=== PATIENT | male | born 1960 | race African-American/Black ===

== ENCOUNTER 2018-02-25 14:56 | Inpatient (IN) | payer OTHER, BC ==
--- NOTE | 2018-02-25 15:06 | PDOC ---
Rapid Medical Evaluation Time Seen by Provider: 02/25/18 15:01 Medical Evaluation: Allergies Allergy/AdvReac Type Severity Reaction Status Date / Time HAYFEVER Allergy Uncoded 06/15/16 09:57 02/25/18 15:01 I have performed a brief in-person evaluation of the patient. The patient presents with a chief complaints of constipation since Wednesday, took miralax, fleet enema and citroma with no results reports pain in abdomen and only passing liquid. Reports generalize abdominal pain. Sent to rule out bowel obstruction, has xray disc on person Pertinent physical exam findings: NAD + bowel sounds in left lower quadrant, bowels hypoactive obese abdomen with discomfort with palpation in all quadrant I have ordered the following: abd xray, labs The patient will proceed to the ED for further evaluation.
--- NOTE | 2018-02-25 16:26 | PDOC ---
History of Present Illness - General History Source: Patient Exam Limitations: No Limitations - History of Present Illness Initial Comments: 02/25/18 17:10 The patient is a 58 year old male, with a significant past medical history of diabetes and hypertension, who presents to the emergency department with constipation for approximately Constipation for approximately 6 days, with associated abdominal pain. The patient describes his abdominal pain is diffuse, crampy, sharp, and radiates into his back. He rates his pain an 11/10. The patient reports his last normal bowel movement was about one week ago. The patient reports visiting his PCP, Dr. Schultz, 5 days ago, who started the patient on Miralax and over the counter enemas. The patient reports multiple episodes of soft stools s/p laxatives, however, he states his abdominal pain has not resolved. He reports associated chills and diaphoresis, but denies any fever, cough, headache, or dizziness. He denies any nausea, vomiting, diarrhea, melena, or hematochezia. He denies any chest pain, shortness of breath, or palpitations. He denies any dysuria, hematuria, frequency, or urgency. He denies any recent travel or sick contacts. Patient reports he had an X-ray done 2 days ago, which showed constipation. He denies any history of constipation prior to this episode or any family history of GI issues. Allergies: NKDA Past Surgical History: Laminectomy, hernia repair Social History: Former ETOH use. No tobacco use. No recreational drug use. PCP: Dr. Schultz <Binta Fortune - Last Filed: 02/25/18 17:10> - General History Source: Patient Exam Limitations: No Limitations <Emily Palmer - Last Filed: 02/26/18 21:12> - General Chief Complaint: Constipation Stated Complaint: CONSTIPATION Time Seen by Provider: 02/25/18 15:01 Past History <Binta Fortune - Last Filed: 02/25/18 17:10> - Past Medical History Anemia: Yes (IRON DEFICIENCY ANEMIA) Asthma: No Cancer: No Cardiac Disorders: No CVA: No COPD: No CHF: No Dementia: No Diabetes: Yes GI Disorders: Yes (GERD) Disorders: No HTN: Yes Hypercholesterolemia: Yes Liver Disease: No Seizures: No Thyroid Disease: No Other medical history: gout - Surgical History Abdominal Surgery: Yes (HERNIA REPAIR) Appendectomy: No Cardiac Surgery: No Cholecystectomy: No Lung Surgery: No Neurologic Surgery: No Orthopedic Surgery: Yes (BACK/NECK LAMINECTOMY SCREW/RODS, SCREWS IN RIGHT TOE) - Immunization History Immunization Up to Date: Yes - Suicide/Smoking/Psychosocial Hx Smoking Status: No Smoking History: Never smoked Number of Cigarettes Smoked Daily: 0 Hx Alcohol Use: No Drug/Substance Use Hx: No Substance Use Type: Alcohol Hx Substance Use Treatment: No <Emily Palmer - Last Filed: 02/26/18 21:12> - Past Medical History Allergies/Adverse Reactions: Allergies Allergy/AdvReac Type Severity Reaction Status Date / Time No Known Drug Allergies Allergy Verified 02/25/18 16:33 HAYFEVER Allergy Uncoded 02/25/18 15:03 Home Medications: Ambulatory Orders Amlodipine Besylate 5 mg PO DAILY 05/07/16 Colchicine 0.6 mg PO PRN PRN 05/07/16 Ergocalciferol (Vitamin D2) [Vitamin D2] 50,000 unit PO WEEKLY 05/07/16 Indomethacin 50 mg PO PRN #0 06/15/16 Review of Systems - Review of Systems Able to Perform ROS?: Yes Comments:: 02/25/18 17:10 GENERAL/CONSTITUTIONAL: +Chills. No: fever, weakness, loss of appetite. HEAD, EYES, EARS, NOSE AND THROAT: No: change in vision, ear pain, discharge, sore throat, throat swelling. CARDIOVASCULAR: +Diaphoresis. No: chest pain, lightheadedness, palpitations, syncope RESPIRATORY: No: cough, shortness of breath, wheezing, hemoptysis, stridor. GASTROINTESTINAL: +Diffuse abdominal pain, constipation. No: nausea, vomiting, diarrhea, rectal bleeding. GENITOURINARY: No: dysuria, hematuria, frequency, urgency, flank pain. MUSCULOSKELETAL: No: back pain, neck pain, joint pain, muscle swelling or pain SKIN AND BREASTS: No: lesions, pallor, rash or easy bruising. NEUROLOGIC: No: headache, vertigo, paresthesias, weakness ENDOCRINE: No: unexplained weight gain or loss HEMATOLOGIC/LYMPHATIC: No: anemia, easy bleeding, swelling nodes <Fortune,Giomilsy - Last Filed: 02/25/18 17:10> *Physical Exam - Vital Signs Last Vital Signs Temp Pulse Resp BP Pulse Ox 98.2 F 105 H 20 138/90 98 02/25/18 15:03 02/25/18 15:03 02/25/18 15:03 02/25/18 15:03 02/25/18 15:03 - Physical Exam Comments: 02/25/18 17:11 GENERAL: Moderate distress. Morbidly obese. HEAD: Normal with no signs of trauma. EYES: PERRLA, EOMI, sclera anicteric, conjunctiva clear. ENT: Ears normal, nares patent, oropharynx clear without exudates. Moist mucous membranes. NECK: Normal range of motion, supple without lymphadenopathy, JVD, or masses. LUNGS: Breath sounds equal, clear to auscultation bilaterally. No wheezes, and no crackles. HEART: Regular rate and rhythm, normal S1 and S2 without murmur, rub or gallop. ABDOMEN: Diffuse tenderness to palpation, with rebound, but no guarding. Soft obese, hypoactive bowel sounds. EXTREMITIES: Normal range of motion, no edema. No clubbing or cyanosis. No erythema, or tenderness. NEUROLOGICAL: Cranial nerves II through XII grossly intact. Normal speech. No focal neurological deficits. MUSCULOSKELETAL: Back non-tender to palpation, no CVA tenderness SKIN: Warm, Dry, normal turgor, no rashes or lesions noted. <Binta Fortune - Last Filed: 02/25/18 17:10> - Vital Signs Last Vital Signs Temp Pulse Resp BP Pulse Ox 98.2 F 105 H 20 138/90 98 02/25/18 15:03 02/25/18 15:03 02/25/18 15:03 02/25/18 15:03 02/25/18 15:03 <Emily Palmer - Last Filed: 02/26/18 21:12> ED Treatment Course - LABORATORY CBC & Chemistry Diagram: 02/26/18 06:00 02/26/18 06:00 <Emily Palmer - Last Filed: 02/26/18 21:12> Medical Decision Making - Medical Decision Making 02/25/18 17:52 Mr Mercado is a 58 yo M who presents to the ER with a complaint of diffuse abdominal pain and constipation Pt states his symptoms began 6 days ago He was seen by his PMD, given Miralax and told to use OTC enema with small stools resulting Pt now has severe and persistent diffuse abdominal pain No fevers or chills Pt has limited his po intake - has not had a full meal since his symptoms began 6 days ago He has been able to drink fluids and eat small amounts of fruit Pain is now 11 DD: SBO, Diverticulitis, intraabdominal abscess, colitis. constipation Will do: Labs CT Pain medications IVF 02/25/18 17:57 Laboratory Tests 02/25/18 17:20 WBC 15.2 H D Hgb 12.1 Hct 37.0 Plt Count 160 D 02/25/18 18:20 Laboratory Tests 02/25/18 02/25/18 02/25/18 17:20 17:20 17:20 WBC 15.2 H D Hgb 12.1 Hct 37.0 Plt Count 160 D PT with INR 14.20 H INR 1.26 H PTT (Actin FS) 30.9 Sodium 138 Potassium 3.5 Chloride 103 Carbon Dioxide 28 BUN 15 D Creatinine 1.8 H D Random Glucose 102 Creatinine elevated Will do CT without IV contrast Signed out to Dr Dimas Clinical Impression: abdominal pain, initial presentation <Emily Palmer - Last Filed: 02/26/18 21:12> *DC/Admit/Observation/Transfer - Attestations Scribe Attestion: 02/25/18 17:11 Documentation prepared by Binta Fortune, acting as medical office administrator for Emily Palmer MD. <Binta Fortune - Last Filed: 02/25/18 17:10> <Emily Palmer - Last Filed: 02/26/18 21:12> Diagnosis at time of Disposition: Pancreatitis - Discharge Dispostion Condition at time of disposition: Guarded
[2018-02-25] MEDS ORDERED: morphine SULFATE 4 MG/ML VIAL IVPUSH ONE (16:28)
[2018-02-25] MEDS ORDERED: SODIUM CHLORIDE 1,000 ML IV STA (16:28)
[2018-02-25] MEDS ORDERED: MORPHINE SULFATE 10 MG/1 ML *VIAL ONE (17:05)
[2018-02-25 17:37] LABS: BASO % 0.4 % (0-2.0); EOS % 1.9 % (0-4.5); HEMOGLOBIN 12.1 GM/dL (11.7-16.9); LYMPH % 9.7 % (8-40); MCH 24.7 pg (25.7-33.7); MCHC 32.8 g/dl (32.0-35.9); MEAN CELL VOLUME 75.3 fl (80-96); MEAN PLT VOLUME 9.1 fl (7.5-11.1); MONO % 12.7 % (3.8-10.2); NEUT % 75.3 % (42.8-82.8); PLATELET COUNT 160 K/MM3 (134-434); RBC 4.91 M/mm3 (4.00-5.60); RDW 15.6 % (11.9-15.9); WHITE BLOOD COUNT 15.2 K/mm3 (4.0-10.0)
[2018-02-25 17:42] LABS: INR 1.26 (0.82-1.09); PROTHROMBIN TIME (PATIENT) 14.2 SEC (9.7-13.0)
[2018-02-25 17:44] LABS: ACTIVATED PTT 30.9 SECONDS (26.9-34.4)
[2018-02-25 17:52] LABS: ALBUMIN 3.1 g/dl (3.4-5.0); ANION GAP 7 (8-16); BILIRUBIN,TOTAL 2.9 mg/dL (0.2-1.0); BLOOD UREA NITROGEN 15 mg/dL (7-18); CALCIUM 7.8 mg/dL (8.5-10.1); CHLORIDE 103 mmol/L (98-107); CO2 28 mmol/L (21-32); CREATININE 1.8 mg/dL (0.7-1.3); GLUCOSE,RANDOM 102 mg/dL (74-106); POTASSIUM 3.5 mmol/L (3.5-5.1); SGOT/AST 24 U/L (15-37); SGPT/ALT 15 U/L (12-78); SODIUM 138 mmol/L (136-145); TOT PROT 7.2 g/dl (6.4-8.2)
[2018-02-25 17:53] LABS: ALK PHOS 108 U/L (45-117)
[2018-02-25 17:55] LABS: LIPASE 475 U/L (73-393)
--- NOTE | 2018-02-25 19:44 | PDOC ---
*Physical Exam - Vital Signs Last Vital Signs Temp Pulse Resp BP Pulse Ox 98.2 F 105 H 20 138/90 98 02/25/18 15:03 02/25/18 15:03 02/25/18 15:03 02/25/18 15:03 02/25/18 15:03 ED Treatment Course - LABORATORY CBC & Chemistry Diagram: 02/25/18 17:20 02/25/18 17:20 - ADDITIONAL ORDERS Additional order review: Laboratory Results 02/25/18 02/25/18 02/25/18 17:20 17:20 17:20 PT with INR 14.20 H INR 1.26 H PTT (Actin FS) 30.9 Sodium 138 Potassium 3.5 Chloride 103 Carbon Dioxide 28 Anion Gap 7 L BUN 15 D Creatinine 1.8 H D Creat Clearance w eGFR 38.81 Random Glucose 102 Lactic Acid 1.7 Calcium 7.8 L Total Bilirubin 2.9 H D AST 24 D ALT 15 D Alkaline Phosphatase 108 D Total Protein 7.2 Albumin 3.1 L Lipase 475 H 02/25/18 17:20 RBC 4.91 MCV 75.3 L MCHC 32.8 RDW 15.6 MPV 9.1 Neutrophils % 75.3 Lymphocytes % 9.7 D Monocytes % 12.7 H Eosinophils % 1.9 Basophils % 0.4 - Medications Given in the ED: ED Medications Discontinued Medications Generic Name Dose Route Start Last Admin Trade Name Freq PRN Reason Stop Dose Admin Sodium Chloride 1,000 mls @ 1,000 mls/hr 02/25/18 16:28 02/25/18 17:24 Normal Saline - IV 02/25/18 17:27 1,000 mls/hr ASDIR STA Administration Morphine Sulfate 6 mg 02/25/18 16:28 02/25/18 17:24 Morphine Sulfate IVPUSH 02/25/18 16:29 6 mg ONCE ONE Administration Medical Decision Making - Medical Decision Making 02/25/18 19:44 I received signout on patient. He has an elevated lipase and he has abd pain. Likely pancreatitis; Ct scan of abd/pelvis pending. 02/25/18 23:39 CT demonstrates acute pancreatitis. Pt will be admitted and kept NPO. GI consult in the AM Sono of abdomen demonstrates no GB pathology. *DC/Admit/Observation/Transfer Diagnosis at time of Disposition: Pancreatitis - Discharge Dispostion Condition at time of disposition: Guarded Admit: Yes - Referrals Referrals: Teri Schultz MD [Primary Care Provider] - - Patient Instructions - Post Discharge Activity
[2018-02-25] MEDS ORDERED: POLYETHYLENE GLYCOL 3350 119 GM BTL PO ONE (20:16)
[2018-02-25] MEDS ORDERED: LACTULOSE 20 GM/30 ML UDC (FOR ORAL USE ONLY) PO ONE (20:17)
[2018-02-25] MEDS ORDERED: LACTULOSE 20 GM/30 ML UDC (FOR ORAL USE ONLY) ONE (20:47)
[2018-02-26] MEDS ORDERED: POLYETHYLENE GLYCOL 3350 119 GM BTL PO ONE (00:30)
[2018-02-26] MEDS ORDERED: ACETAMINOPHEN 1000 MG/100 ML VIAL (NON FORMULARY) IVPB ONE (00:31)
[2018-02-26] MEDS ORDERED: METOCLOPRAMIDE HCL INJECTION 10 MG/2 ML VIAL IVPUSH PRN (00:53)
--- NOTE | 2018-02-26 01:01 | HP ---
CHIEF COMPLAINT: abdominal pain PCP: Antoine HISTORY OF PRESENT ILLNESS: This is a 58 year old male with a past medical history of DM, HTN, iron deficiency anemia, GERD, HLD, gout who presented to the ED with abdominal pain x 6 days. Pt reports that he was seen by his PCP and started on miralax and enemas which he feels he did not self administer properly. He had an xray done a few days ago. He reports that he has had some liquid BMs since starting the miralax but feels there is much more in him and "nothing is moving". He denies any nausea or vomiting but states that the pain is in the upper part of his abdomen and his back. ER course was notable for: (1) lipase 475 with evidence of acute pancreatitis on CT scan (2)WBC 15.2, Lactic Acid WNL Recent Travel: pt denies PAST MEDICAL HISTORY: DM, HTN, iron deficiency anemia, GERD, HLD, gout PAST SURGICAL HISTORY: laminectomy L4-L5 R great toe bunionectomy Social History: Smoking: pt denies Alcohol: quit drinking 10 days ago, prior 1 pint of cognac daily Drugs: pt denies Family History: mother , heart disease age 79 sister , heart disease father age 90, s/p fall brother , HIV Allergies No Known Drug Allergies Allergy (Verified 02/25/18 16:33) HAYFEVER Allergy (Uncoded 02/25/18 15:03) HOME MEDICATIONS: pt states he is unsure of his home medications. States that he utilizes [facility] on [address], Called [facility], pt has not filled any prescriptions since 06/2017 REVIEW OF SYSTEMS CONSTITUTIONAL: Present: loss of appetite Absent: fever, chills, diaphoresis, generalized weakness, malaise, weight change HEENT: Absent: rhinorrhea, nasal congestion, throat pain, throat swelling, difficulty swallowing, mouth swelling, ear pain, eye pain, visual changes CARDIOVASCULAR: Absent: chest pain, syncope, palpitations, irregular heart rate, lightheadedness , peripheral edema RESPIRATORY: Absent: cough, shortness of breath, dyspnea with exertion, orthopnea, wheezing, stridor, hemoptysis GASTROINTESTINAL: Present: abdominal pain, constipation Absent: abdominal distension, nausea, vomiting, diarrhea, melena, hematochezia GENITOURINARY: Absent: dysuria, frequency, urgency, hesitancy, hematuria, flank pain, genital pain MUSCULOSKELETAL: Present: back pain Absent: myalgia, arthralgia, joint swelling, neck pain SKIN: Absent: rash, itching, pallor HEMATOLOGIC/IMMUNOLOGIC: Absent: easy bleeding, easy bruising, lymphadenopathy, frequent infections ENDOCRINE: Absent: unexplained weight gain, unexplained weight loss, heat intolerance, cold intolerance NEUROLOGIC: Absent: headache, focal weakness or paresthesias, dizziness, unsteady gait, seizure, mental status changes, bladder or bowel incontinence PSYCHIATRIC: Absent: anxiety, depression, suicidal or homicidal ideation, hallucinations. PHYSICAL EXAMINATION Vital Signs - 24 hr 3 02/25/18 15:03 Temperature 98.2 F Pulse Rate 105 H Respiratory 20 Rate Blood Pressure 138/90 O2 Sat by Pulse 98 Oximetry (%) GENERAL: Awake, alert, and fully oriented, in no acute distress. HEAD: Normal with no signs of trauma. EYES: Pupils equal, round and reactive to light, extraocular movements intact, sclera anicteric, conjunctiva clear. No lid lag. EARS, NOSE, THROAT: Ears normal, nares patent, oropharynx clear without exudates. Moist mucous membranes. NECK: Normal range of motion, supple without lymphadenopathy, JVD, or masses. LUNGS: Breath sounds equal, clear to auscultation bilaterally. No wheezes, and no crackles. No accessory muscle use. HEART: Regular rate and rhythm, normal S1 and S2 without murmur, rub or gallop. ABDOMEN: Soft, tender upper quadrants, obese, normoactive bowel sounds, no guarding, no rebound, no masses. MUSCULOSKELETAL: Normal range of motion at all joints. No bony deformities or tenderness. No CVA tenderness. UPPER EXTREMITIES: 2+ pulses, warm, well-perfused. No cyanosis. No clubbing. No peripheral edema. LOWER EXTREMITIES: 2+ pulses, warm, well-perfused. No calf tenderness. No peripheral edema. NEUROLOGICAL: Cranial nerves II-XII intact. Normal speech. Normal gait. PSYCHIATRIC: Cooperative. Good eye contact. Appropriate mood and affect. SKIN: Warm, dry, normal turgor, no rashes or lesions noted, normal capillary refill. Laboratory Results - last 24 hr 3 02/25/18 02/25/18 02/25/18 17:20 17:20 17:20 WBC 15.2 H D RBC 4.91 Hgb 12.1 Hct 37.0 MCV 75.3 L MCH 24.7 L MCHC 32.8 RDW 15.6 Plt Count 160 D MPV 9.1 Neutrophils % 75.3 Lymphocytes % 9.7 D Monocytes % 12.7 H Eosinophils % 1.9 Basophils % 0.4 PT with INR 14.20 H INR 1.26 H PTT (Actin FS) 30.9 Sodium 138 Potassium 3.5 Chloride 103 Carbon Dioxide 28 Anion Gap 7 L BUN 15 D Creatinine 1.8 H D Creat Clearance w eGFR 38.81 Random Glucose 102 Lactic Acid 1.7 Calcium 7.8 L Total Bilirubin 2.9 H D AST 24 D ALT 15 D Alkaline Phosphatase 108 D Total Protein 7.2 Albumin 3.1 L Lipase [address] abd/pelvis w/o contrast IMPRESSION: soft tissue detail is somewhat limited due to artifact resulting from body habitus. Acute pancreatitis is identified. Note is also made of interval development of chronic calcific pancreatitis in comparison to a previous CT exam of 07/23/2012. Several mildly dilated upper abdominal small bowel loops are noted which could be on the basis of a mild localized ileus and less likely on the basis of a mild/early small bowel obstruction. Correlate with follow-up radiography or CT. Bibasilar discoid atelectasis. Reported By: Grant Longoria MD 02/25/18 7285 ASSESSMENT/PLAN: 58yM with PMH DM, HTN, iron deficiency anemia, GERD, HLD, gout presented to the ED with abdominal pain x 5-6 days. Pancreatitis - NPO except meds - IVF NS @ 75cc/hr - GI consult constipation - excessive stool burden not noted on CT scan, pt reassured that pain is likely due to pancreatitis and has nothing to do with constipation - pt has received miralax in ED, will monitor HTN - pt unsure of home meds, when i called [facility] to verify meds, no medication filled since june - bp low 100s presently, will hold meds for now, BP q4h prior ETOH abuse - stressed importance of abstaining from alcohol given pancreatitis DM - BGM with novolog SS AC/HS anemia - Hgb 12, will monitor H/H DVT PPX - heparin 5000u TID FEN - NS @ 75cc/hr - BMP in am - NPO Dispo: Pt currently requires further management of his emergent condition. Visit type - Emergency Visit Emergency Visit: Yes ED Registration Date: 02/26/18 Care time: The patient presented to the Emergency Department on the above date and was hospitalized for further evaluation of their emergent condition. - New Patient This patient is new to me today: Yes Date on this admission: 02/26/18 - Critical Care Critical Care patient: No Hospitalist Screening - Colonoscopy Questionnaire Colonoscopy Questionnaire: Colonoscopy Questionnaire - Patient: 50 - 75 years old and never had a screening colonoscopy: Unknown History of colon or rectal polyps, or CA: No History of IBD, Crohn's disease or UC: No History of abdominal radiation therapy as a child: No - Relative: 1 with colon or rectal CA, or polyps at age 60 or younger: No Colon or rectal CA diagnosed at age 45 or younger: No Multiple relatives with colon or rectal CA: No - Outcome: Screening Result: Negative Screen
[2018-02-26] MEDS: SODIUM CHLORIDE 1,000 ML IV SCH ×2 (01:07→04:02)
[2018-02-26] MEDS ORDERED: ACETAMINOPHEN INJECTION 100 ML IVPB ONE (01:26)
[2018-02-26 03:39] VITALS: BMI 49.0
[2018-02-26] MEDS: morphine SULFATE 4 MG/ML VIAL IVPUSH PRN ×4 (04:01→20:23)
[2018-02-26] MEDS: HEPARIN NA (PORCINE) 5,000 UNITS/ML 1ML VIAL SQ SCH ×3 (05:58→21:41)
[2018-02-26] MEDS: INSULIN SLIDING SCALE (NOVOLOG) 1 VIAL SQ SCH ×4 (05:59→21:42)
[2018-02-26 07:54] LABS: BASO % 0.2 % (0-2.0); EOS % 2.6 % (0-4.5); HEMATOCRIT 33.9 % (35.4-49); HEMOGLOBIN 11.1 GM/dL (11.7-16.9); LYMPH % 10.2 % (8-40); MCH 24.7 pg (25.7-33.7); MCHC 32.7 g/dl (32.0-35.9); MEAN CELL VOLUME 75.6 fl (80-96); MEAN PLT VOLUME 9.2 fl (7.5-11.1); MONO % 16.1 % (3.8-10.2); NEUT % 70.9 % (42.8-82.8); PLATELET COUNT 168 K/MM3 (134-434); RBC 4.48 M/mm3 (4.00-5.60); RDW 15.4 % (11.9-15.9); WHITE BLOOD COUNT 14.2 K/mm3 (4.0-10.0)
[2018-02-26 08:03] LABS: CHLORIDE 99 mmol/L (98-107); POTASSIUM 3.2 mmol/L (3.5-5.1); SODIUM 136 mmol/L (136-145)
[2018-02-26 08:11] LABS: ANION GAP 11 (8-16); BLOOD UREA NITROGEN 20 mg/dL (7-18); CALCIUM 8.4 mg/dL (8.5-10.1); CO2 26 mmol/L (21-32); CREATININE 1.8 mg/dL (0.7-1.3); GLUCOSE,RANDOM 93 mg/dL (74-106); MAGNESIUM 2.4 mg/dL (1.8-2.4); PHOSPHOROUS 2.9 mg/dL (2.5-4.9)
[2018-02-26 08:14] LABS: LIPASE 492 U/L (73-393)
--- NOTE | 2018-02-26 08:46 | CON.GI ---
Consult Consult Specialty:: GI: Dr. Mak covering for Dr. Brennan who resumes care 02/28 Referred by:: Dr. Teri Schultz Reason for Consultation:: Pancreatitis - History of Present Illness Chief Complaint: abdominal pain History of Present Illness: 58M admitted for evaluation of abdominal pain. He states that he was experiencing mid abdominal and back pain from wednesday along with constipation, saw his PMD Dr. Schultz, was given a referral to [facility] radiology to have an abdominal x-ray performed (patient states that it found stool in colon) and he was then prescribed laxatives. He had liquid bowel movements but the pain persisted. He was sent to the ER yesterday. work-up included blood work revealing a WBC of 15K, elevated creatinine of 1.8, isolated hyperbilirubinemia of 2.9 and lipase of 475. he underwent abdominal imagin including abdominal US that was limited given his body habitus but failed to reveal biliary ductal dilatation or cholelithiasis. He underwent CT scan of the abdomen and pelvis with PO contrast only that revealed calcifications within the pancreas along with peripancreatic inflammatory changes consistent with acute pancreatitis. He denies similar episodes in the past and was drinking 1 pint of cognac every other day. he quit 10 days ago. He denies recent changes in his medication regimen. He takes colchicine and indocin for management of gout as needed and last took 2 weeks ago. He denies recent OTC medication use. He had a colonoscopy in [address] Hugo that revealed an ascending colon lipoma. there is no family history of colorectal cancer or other GI malignancy. - History Source History Provided By: Patient, Medical Record - Past Medical History Cardio/Vascular: Yes: HTN, Hyperlipdemia Rheumatology: Yes: Gout Endocrine: Yes: Diabetes Mellitus (DM II), Other (Morbid obesity) - Past Surgical History Past Surgical History: Yes: Laminectomy (lumbar spine) Additional Surgical History: surgery on right foot - Alcohol/Substance Use Hx Alcohol Use: Yes (1 pint cognac every other day for multiple years) History of Substance Use: reports: None - Smoking History Smoking history: Never smoked Aproximately how many cigarettes per day: 0 - Social History Usual Living Arrangement: With Significant Other ADL: Independent Place of : [facility] History of Recent Travel: No Home Medications - Allergies Allergies/Adverse Reactions: Allergies Allergy/AdvReac Type Severity Reaction Status Date / Time No Known Drug Allergies Allergy Verified 02/25/18 16:33 HAYFEVER Allergy Uncoded 02/25/18 15:03 - Home Medications Home Medications: Ambulatory Orders Amlodipine Besylate 5 mg PO DAILY 05/07/16 Colchicine 0.6 mg PO PRN PRN 05/07/16 Ergocalciferol (Vitamin D2) [Vitamin D2] 50,000 unit PO WEEKLY 05/07/16 Indomethacin 50 mg PO PRN #0 06/15/16 Family Disease History - Family Disease History Family Disease History: Other: Father (: 90: s/p Fall), Mother ( 76: CAD ), Brother (: HIV), Sister (: CAD), Son (3, healthy), Daughter (1, healthy) Other Family History: No family history of colorectal cancer / pancreatic cancer Review of Systems - Review of Systems Constitutional: denies: Unintentional Wgt. Loss Gastrointestinal: reports: Constipation, Diarrhea, Indigestion, Nausea. denies : Melena, Rectal Bleeding, Vomiting, Vomiting Blood Physical Exam-GI Vital Signs: Vital Signs Temperature 98 F 02/26/18 06:03 Pulse Rate 85 02/26/18 06:03 Respiratory Rate 20 02/26/18 06:03 Blood Pressure 117/67 02/26/18 06:03 O2 Sat by Pulse Oximetry (%) 95 02/26/18 03:50 Constitutional: Yes: Calm Eyes: No: Sclera Icterus Cardiovascular: Yes: Regular Rate and Rhythm Respiratory: Yes: CTA Bilaterally Gastrointestinal Inspection: Yes: Other (Evaluation limited due to body habitus) . No: Scars ...Auscultate: Yes: Normoactive Bowel Sounds ...Palpate: Yes: Tenderness (TTP mid abdomen, no guarding or rebound). No: Hepatomegaly (limited due to body habitus) ...Percussion: No: Tympanitic Edema: Yes (Trace LE edema) Neurological: Yes: Alert, Oriented Labs: CBC, BMP 02/26/18 06:00 02/26/18 06:00 INR, PTT INR 1.26 (0.82-1.09) H 02/25/18 17:20 Hepatic Panel Total Bilirubin 2.9 mg/dL (0.2-1.0) H D 02/25/18 17:20 AST 24 U/L (15-37) D 02/25/18 17:20 ALT 15 U/L (12-78) D 02/25/18 17:20 Alkaline Phosphatase 108 U/L (45-117) D 02/25/18 17:20 Albumin 3.1 g/dl (3.4-5.0) L 02/25/18 17:20 Imaging - Results Cat Scan: Report Reviewed, Image Reviewed Ultrasound: Report Reviewed Problem List - Problems (1) Pancreatitis Assessment/Plan: Description of pain, location of tenderness on exam and CT scan findings c/w pancreatitis. Calcifications in pancreas likely secondary to heavy alcohol consumption. This may have precipitated the pancreatitis as well: Pain improved from onset in Wednesday Advise: IV hydration Lactated Ringers at 100cc/hr Advance to clear liquids Isolated hyperbilirubinemia. ? if secondary to inflammatory changes at head of pancreas. No previous elevation to suggest gilbert's. If continues to rise, evaluation for further imaging of biliary tract will need to be considered. Likely will not fit in MRI machine for MRCP so transfer to a facility that could perform EUS would be an option AM labs including fasting triglycerides evaluation of elevated Cr. per PMD Advised complelete alcohol cessation Upon discharge can follow-up with Dr. Brennan as an outpatient Code(s): K85.90 - ACUTE PANCREATITIS WITHOUT NECROSIS OR INFECTION, UNSP Qualifiers: Chronicity: acute Pancreatitis type: alcohol induced Acute pancreatitis complication: no infection or necrosis Qualified Code(s): K85.20 - Alcohol induced acute pancreatitis without necrosis or infection
[2018-02-26] MEDS ORDERED: POLYETHYLENE GLYCOL 3350 119 GM BTL PO PRN (09:11)
[2018-02-26] MEDS: LACTATED RINGERS SOLUTION 1,000 ML/1,000 ML INFUS.BAG IV SCH ×2 (10:00→20:21)
--- NOTE | 2018-02-26 12:09 | PN ---
Progress Note, Physician - Current Medication List Current Medications: Active Medications Heparin Sodium (Porcine) (Heparin -) 5,000 unit SQ TID [facility] Last Admin: 02/26/18 05:58 Dose: 5,000 unit Lactated Ringer's (Lactated Ringers Solution) 1,000 ml in 1,000 mls @ 100 mls/ hr IV ASDIR ANNA Last Admin: 02/26/18 10:00 Dose: 100 mls/hr Insulin Aspart (Novolog Vial Sliding Scale -) 1 vial SQ HS ANNA PRN Reason: Protocol Insulin Aspart (Novolog Vial Sliding Scale -) 1 vial SQ TIDAC ANNA PRN Reason: Protocol Last Admin: 02/26/18 11:42 Dose: Not Given Morphine Sulfate (Morphine Sulfate) 4 mg IVPUSH Q4H PRN PRN Reason: PAIN LEVEL 6-10 Last Admin: 02/26/18 11:41 Dose: 4 mg Polyethylene Glycol (Miralax (For Daily Use) -) 17 gm PO DAILY PRN PRN Reason: CONSTIPATION - Objective Vital Signs: Vital Signs Temperature 98.5 F 02/26/18 10:00 Pulse Rate 85 02/26/18 10:00 Respiratory Rate 20 02/26/18 10:00 Blood Pressure 127/76 02/26/18 10:00 O2 Sat by Pulse Oximetry (%) 95 02/26/18 03:50 Labs: CBC, BMP 02/26/18 06:00 02/26/18 06:00 INR, PTT INR 1.26 (0.82-1.09) H 02/25/18 17:20 Problem List - Problems (1) Pancreatitis Assessment/Plan: Pancreatitis - NPO except meds - IVF NS @ 75cc/hr - GI consult - NS @ 75cc/hr - BMP and Lipase in am - Diet per GI - prior ETOH abuse - stressed importance of abstaining from alcohol given pancreatitis - heparin 5000u TID Code(s): K85.90 - ACUTE PANCREATITIS WITHOUT NECROSIS OR INFECTION, UNSP Qualifiers: Chronicity: acute Pancreatitis type: alcohol induced Acute pancreatitis complication: no infection or necrosis Qualified Code(s): K85.20 - Alcohol induced acute pancreatitis without necrosis or infection (2) HTN (hypertension) Assessment/Plan: - pt unsure of home meds - bp low 100s presently, will hold meds for now, BP q4h Code(s): I10 - ESSENTIAL (PRIMARY) HYPERTENSION (3) Constipation Assessment/Plan: - excessive stool burden not noted on CT scan, pt reassured that pain is likely due to pancreatitis and has nothing to do with constipation - pt has received miralax in ED, will monitor Code(s): K59.00 - CONSTIPATION, UNSPECIFIED (4) Diabetes Assessment/Plan: - BGM with novolog SS AC/HS Code(s): E11.9 - TYPE 2 DIABETES MELLITUS WITHOUT COMPLICATIONS
--- NOTE | 2018-02-26 14:33 | EKG ---
Test Reason : Blood Pressure : / mmHG Vent. Rate : 091 BPM Atrial Rate : 091 BPM P-R Int : 116 ms QRS Dur : 096 ms QT Int : 386 ms P-R-T Axes : 005 001 094 degrees QTc Int : 474 ms NORMAL SINUS RHYTHM NONSPECIFIC ST AND T WAVE ABNORMALITY ABNORMAL ECG NO PREVIOUS ECGS AVAILABLE Confirmed by MD Elan, Silver ([id number]) on 02/26/2018 2:33:16 PM Referred By: Confirmed By:Silver Ansari MD
[2018-02-26 15:53] LABS: CHOLESTEROL 125 mg/dL (50-200); HDL CHOLESTEROL 14 mg/dL (40-60); TRIGLYCERIDES 165 mg/dL (35-160)
[2018-02-26] MEDS ORDERED: chlordiazePOXIDE HCL 25 MG CAPSULE PO PRN (18:42)
[2018-02-26] MEDS ORDERED: POTASSIUM CHLORIDE TABS 20 MEQ TABLET.ER (FP) PO ONE (19:30)
[2018-02-27] MEDS: morphine SULFATE 4 MG/ML VIAL IVPUSH PRN ×5 (00:40→19:56)
[2018-02-27] MEDS: INSULIN SLIDING SCALE (NOVOLOG) 1 VIAL SQ SCH ×4 (06:40→21:07)
[2018-02-27] MEDS: HEPARIN NA (PORCINE) 5,000 UNITS/ML 1ML VIAL SQ SCH ×3 (06:40→21:12)
[2018-02-27 07:36] LABS: BASO % 0.2 % (0-2.0); EOS % 2.3 % (0-4.5); HEMATOCRIT 32.4 % (35.4-49); HEMOGLOBIN 10.5 GM/dL (11.7-16.9); LYMPH % 10.9 % (8-40); MCH 24.6 pg (25.7-33.7); MCHC 32.5 g/dl (32.0-35.9); MEAN CELL VOLUME 75.5 fl (80-96); MONO % 16.5 % (3.8-10.2); NEUT % 70.1 % (42.8-82.8); PLATELET COUNT 178 K/MM3 (134-434); RBC 4.29 M/mm3 (4.00-5.60); RDW 15.5 % (11.9-15.9)
[2018-02-27 07:53] LABS: ALBUMIN 2.6 g/dl (3.4-5.0); ANION GAP 7 (8-16); BLOOD UREA NITROGEN 13 mg/dL (7-18); CALCIUM 7.7 mg/dL (8.5-10.1); CHLORIDE 103 mmol/L (98-107); CO2 26 mmol/L (21-32); GLUCOSE,RANDOM 95 mg/dL (74-106); POTASSIUM 3.5 mmol/L (3.5-5.1); SODIUM 136 mmol/L (136-145)
[2018-02-27 07:57] LABS: ALK PHOS 108 U/L (45-117); BILIRUBIN,DIRECT 2.2 mg/dL (0.0-0.2); BILIRUBIN,TOTAL 2.8 mg/dL (0.2-1.0); CREATININE 1.3 mg/dL (0.7-1.3); SGOT/AST 31 U/L (15-37); SGPT/ALT 20 U/L (12-78); TOT PROT 6.4 g/dl (6.4-8.2)
[2018-02-27 08:03] LABS: ALBUMIN 2.7 g/dl (3.4-5.0); ANION GAP 10 (8-16); BLOOD UREA NITROGEN 15 mg/dL (7-18); CHLORIDE 101 mmol/L (98-107); CO2 26 mmol/L (21-32); GLUCOSE,RANDOM 96 mg/dL (74-106); POTASSIUM 3.5 mmol/L (3.5-5.1); SGOT/AST 30 U/L (15-37); SGPT/ALT 19 U/L (12-78); SODIUM 137 mmol/L (136-145)
[2018-02-27 08:16] LABS: ALK PHOS 105 U/L (45-117); BILIRUBIN,TOTAL 2.9 mg/dL (0.2-1.0); CREATININE 1.2 mg/dL (0.7-1.3); TOT PROT 6.5 g/dl (6.4-8.2)
[2018-02-27] MEDS: LACTATED RINGERS SOLUTION 1,000 ML/1,000 ML INFUS.BAG IV SCH (09:06)
--- NOTE | 2018-02-27 11:02 | PN ---
GI Progress Note Subjective: Dr. Mak covering for Dr. Brennan who resumes care 02/28 Main complaint is pain in left lower back. He told his nurse however this morning that the pain is 10/10 in mid abdomen and lower back. kleber is receiving morphine q 4 hours. No BM. + Flatus He tells me that the mid abdominal pain is improved. No vomiting - Objective Vital Signs: Vital Signs Temperature 98.2 F 02/27/18 09:00 Pulse Rate 93 H 02/27/18 09:00 Respiratory Rate 20 02/27/18 09:00 Blood Pressure 124/72 02/27/18 09:00 O2 Sat by Pulse Oximetry (%) 98 02/26/18 21:00 Constitutional: Calm Eyes: No: Sclera Icterus Cardiovascular: Yes: Regular Rate and Rhythm Respiratory: Yes: CTA Bilaterally Gastrointestinal Inspection: Yes: Other (Limited secondary to body habitus) ...Auscultate: Yes: Normoactive Bowel Sounds ...Palpate: Yes: Tenderness (Improved TTP mid abdomen, no rebound/guarding) Edema: Yes (Trace b/l LE edema) Neurological: Yes: Alert, Oriented Labs: CBC, BMP 02/27/18 06:00 02/27/18 06:00 INR 1.26 (0.82-1.09) H 02/25/18 17:20 02/27/18 02/27/18 06:00 06:00 C-Reactive Protein 26.6 H Triglycerides 205 H D Total Bilirubin 2.9 mg/dL (0.2-1.0) H 02/27/18 06:00 Direct Bilirubin 2.2 mg/dL (0.0-0.2) H 02/27/18 06:00 AST 30 U/L (15-37) 02/27/18 06:00 ALT 19 U/L (12-78) 02/27/18 06:00 Alkaline Phosphatase 105 U/L (45-117) 02/27/18 06:00 Albumin 2.7 g/dl (3.4-5.0) L 02/27/18 06:00 - ....Imaging X-ray: Report Reviewed Problem List - Problems (1) Pancreatitis Assessment/Plan: Cliniclly abdominal pain improved, still with left lower back / flank pain. There was fluid tracking down to the left paracolic gutter from the pancreatitis that could eb contributing, however I advised his nurse to call PMD to exclude alternate pathology. Isolated hyperbilirubinemia. Prediminantly direct. ? if secondary to inflammatory changes at head of pancreas. If continues to rise, evaluation for further imaging of biliary tract will need to be considered. Likely will not fit in MRI machine for MRCP so transfer to a facility that could perform EUS would be an option Minmize opiate analgesia IV hydration Clear liquids until it is clear that abdominal pain improved or just being relieved with morphine. Conflicting description of pain by Mr. Mercado to me and his nurse Code(s): K85.90 - ACUTE PANCREATITIS WITHOUT NECROSIS OR INFECTION, UNSP Qualifiers: Chronicity: acute Pancreatitis type: alcohol induced Acute pancreatitis complication: no infection or necrosis Qualified Code(s): K85.20 - Alcohol induced acute pancreatitis without necrosis or infection (2) Constipation Assessment/Plan: Suspect that ileus secondary to pancreatitis contributing as well as opiate analgesia Ordered FUA for today to assess extent of ileus Code(s): K59.00 - CONSTIPATION, UNSPECIFIED
--- NOTE | 2018-02-27 12:03 | PN ---
Progress Note, Physician - Current Medication List Current Medications: Active Medications Chlordiazepoxide HCl (Librium -) 50 mg PO Q6H PRN PRN Reason: alcohol withdrawal Heparin Sodium (Porcine) (Heparin -) 5,000 unit SQ TID ANNA Last Admin: 02/27/18 06:40 Dose: 5,000 unit Lactated Ringer's (Lactated Ringers Solution) 1,000 ml in 1,000 mls @ 100 mls/ hr IV ASDIR ANNA Last Admin: 02/27/18 09:06 Dose: 100 mls/hr Insulin Aspart (Novolog Vial Sliding Scale -) 1 vial SQ HS ANNA PRN Reason: Protocol Last Admin: 02/26/18 21:42 Dose: Not Given Insulin Aspart (Novolog Vial Sliding Scale -) 1 vial SQ TIDAC ANNA PRN Reason: Protocol Last Admin: 02/27/18 11:09 Dose: Not Given Morphine Sulfate (Morphine Sulfate) 4 mg IVPUSH Q4H PRN PRN Reason: PAIN LEVEL 6-10 Last Admin: 02/27/18 09:34 Dose: 4 mg Polyethylene Glycol (Miralax (For Daily Use) -) 17 gm PO DAILY PRN PRN Reason: CONSTIPATION Last Admin: 02/27/18 09:34 Dose: 17 gm - Objective Vital Signs: Vital Signs Temperature 98.2 F 02/27/18 09:00 Pulse Rate 93 H 02/27/18 09:00 Respiratory Rate 20 02/27/18 09:00 Blood Pressure 124/72 02/27/18 09:00 O2 Sat by Pulse Oximetry (%) 98 02/27/18 09:00 Cardiovascular: Yes: Regular Rate and Rhythm Respiratory: Yes: Regular, CTA Bilaterally Gastrointestinal: Yes: Normal Bowel Sounds, Soft. No: Tenderness Labs: CBC, BMP 02/27/18 06:00 02/27/18 06:00 INR, PTT INR 1.26 (0.82-1.09) H 02/25/18 17:20 Problem List - Problems (1) Pancreatitis Assessment/Plan: Pancreatitis - NPO except meds - IVF NS @ 75cc/hr - GI consult - NS @ 75cc/hr - BMP and Lipase in am - Diet per GI - prior ETOH abuse - stressed importance of abstaining from alcohol given pancreatitis - heparin 5000u TID Code(s): K85.90 - ACUTE PANCREATITIS WITHOUT NECROSIS OR INFECTION, UNSP Qualifiers: Chronicity: acute Pancreatitis type: alcohol induced Acute pancreatitis complication: no infection or necrosis Qualified Code(s): K85.20 - Alcohol induced acute pancreatitis without necrosis or infection (2) HTN (hypertension) Assessment/Plan: - pt unsure of home meds - bp low 100s presently, will hold meds for now, BP q4h Code(s): I10 - ESSENTIAL (PRIMARY) HYPERTENSION (3) Constipation Assessment/Plan: - excessive stool burden not noted on CT scan, pt reassured that pain is likely due to pancreatitis and has nothing to do with constipation - pt has received miralax in ED, will monitor Code(s): K59.00 - CONSTIPATION, UNSPECIFIED (4) Diabetes Assessment/Plan: - BGM with novolog AC/HS Code(s): E11.9 - TYPE 2 DIABETES MELLITUS WITHOUT COMPLICATIONS
[2018-02-27] MEDS ORDERED: COLCHICINE 0.6 MG TABLET (FP) PO ONE (12:30)
[2018-02-27] MEDS ORDERED: MINERAL OIL ENEMA 133 ML ENEMA PR ONE (15:45)
[2018-02-28] MEDS: INSULIN SLIDING SCALE (NOVOLOG) 1 VIAL SQ SCH ×3 (06:07→17:18)
[2018-02-28] MEDS: HEPARIN NA (PORCINE) 5,000 UNITS/ML 1ML VIAL SQ SCH ×2 (06:07→15:04)
[2018-02-28] MEDS ORDERED: INSULIN (NOVOLOG) ASPART 100 UNITS/ML 10ML VIAL ONE (06:44)
[2018-02-28] MEDS ORDERED: PT OWN MED DRAWER 7, Y5N ONE (06:45)
[2018-02-28 07:59] LABS: HEMATOCRIT 30.4 % (35.4-49); HEMOGLOBIN 10.1 GM/dL (11.7-16.9); MCHC 33.1 g/dl (32.0-35.9); MEAN CELL VOLUME 75.4 fl (80-96); MEAN PLT VOLUME 8.6 fl (7.5-11.1); PLATELET COUNT 187 K/MM3 (134-434); RBC 4.03 M/mm3 (4.00-5.60); RDW 15.1 % (11.9-15.9); WHITE BLOOD COUNT 12.3 K/mm3 (4.0-10.0)
[2018-02-28 08:32] LABS: ALBUMIN 2.4 g/dl (3.4-5.0); ANION GAP 10 (8-16); BLOOD UREA NITROGEN 9 mg/dL (7-18); CALCIUM 8.4 mg/dL (8.5-10.1); CHLORIDE 104 mmol/L (98-107); CO2 27 mmol/L (21-32); GLUCOSE,RANDOM 118 mg/dL (74-106); POTASSIUM 3.7 mmol/L (3.5-5.1); SGOT/AST 32 U/L (15-37); SGPT/ALT 22 U/L (12-78); SODIUM 141 mmol/L (136-145)
[2018-02-28 08:33] LABS: LIPASE 371 U/L (73-393)
[2018-02-28 08:34] LABS: ALK PHOS 116 U/L (45-117); BILIRUBIN,TOTAL 2.3 mg/dL (0.2-1.0); CREATININE 1.1 mg/dL (0.7-1.3); TOT PROT 6.3 g/dl (6.4-8.2)
[2018-02-28 09:55] LABS: ANISOCYTOSIS 1+; PLATELET ESTIMATE NORMAL
[2018-02-28] MEDS ORDERED: COLCHICINE 0.6 MG TABLET (FP) PO SCH (10:00)
[2018-02-28] MEDS: LACTATED RINGERS SOLUTION 1,000 ML/1,000 ML INFUS.BAG IV SCH (10:04)
--- NOTE | 2018-02-28 12:12 | PN ---
Progress Note, Physician History of Present Illness: Asymptomatic. Tolerating liquid diet. Has BMs. Asking to be discharged. - Current Medication List Current Medications: Active Medications Chlordiazepoxide HCl (Librium -) 50 mg PO Q6H PRN PRN Reason: alcohol withdrawal Colchicine (Colcrys -) 0.6 mg PO DAILY COUNTS INCLUDE 234 BEDS AT THE [facility] Last Admin: 02/28/18 10:04 Dose: 0.6 mg Heparin Sodium (Porcine) (Heparin -) 5,000 unit SQ TID COUNTS INCLUDE 234 BEDS AT THE [facility] Last Admin: 02/28/18 06:07 Dose: 5,000 unit Lactated Ringer's (Lactated Ringers Solution) 1,000 ml in 1,000 mls @ 100 mls/ hr IV ASDIR COUNTS INCLUDE 234 BEDS AT THE [facility] Last Admin: 02/28/18 10:04 Dose: Not Given Insulin Aspart (Novolog Vial Sliding Scale -) 1 vial SQ HS ANNA PRN Reason: Protocol Last Admin: 02/27/18 21:07 Dose: Not Given Insulin Aspart (Novolog Vial Sliding Scale -) 1 vial SQ TIDAC COUNTS INCLUDE 234 BEDS AT THE [facility] PRN Reason: Protocol Last Admin: 02/28/18 12:06 Dose: Not Given Morphine Sulfate (Morphine Sulfate) 4 mg IVPUSH Q4H PRN PRN Reason: PAIN LEVEL 6-10 Last Admin: 02/27/18 19:56 Dose: 4 mg Polyethylene Glycol (Miralax (For Daily Use) -) 17 gm PO DAILY PRN PRN Reason: CONSTIPATION Last Admin: 02/27/18 09:34 Dose: 17 gm - Objective Vital Signs: Vital Signs Temperature 98.0 F 02/28/18 10:06 Pulse Rate 85 02/28/18 10:06 Respiratory Rate 20 02/28/18 10:06 Blood Pressure 138/84 02/28/18 10:06 O2 Sat by Pulse Oximetry (%) 99 02/28/18 09:00 Constitutional: Yes: Well Nourished, No Distress, Calm Eyes: Yes: Conjunctiva Clear HENT: Yes: Atraumatic Neck: Yes: Supple Cardiovascular: Yes: Regular Rate and Rhythm Gastrointestinal: Yes: Normal Bowel Sounds, Soft. No: Melena, Tenderness, Vomiting Neurological: Yes: Alert, Oriented Labs: CBC, BMP 02/28/18 06:25 02/28/18 06:25 INR, PTT INR 1.26 (0.82-1.09) H 02/25/18 17:20 Laboratory Last Values WBC 12.3 K/mm3 (4.0-10.0) H 02/28/18 06:25 RBC 4.03 M/mm3 (4.00-5.60) 02/28/18 06:25 Hgb 10.1 GM/dL (11.7-16.9) L 02/28/18 06:25 Hct 30.4 % (35.4-49) L 02/28/18 06:25 MCV 75.4 fl (80-96) L 02/28/18 06:25 MCH 25.0 pg (25.7-33.7) L 02/28/18 06:25 MCHC 33.1 g/dl (32.0-35.9) 02/28/18 06:25 RDW 15.1 % (11.9-15.9) 02/28/18 06:25 Plt Count 187 K/MM3 (134-434) 02/28/18 06:25 MPV 8.6 fl (7.5-11.1) 02/28/18 06:25 Neutrophils % [employer] 02/28/18 06:25 Neutrophils % (Manual) 67.7 % (42.8-82.8) 02/28/18 06:25 Band Neutrophils % 2.0 % 02/28/18 06:25 Lymphocytes % [employer] 02/28/18 06:25 Lymphocytes % (Manual) 9.1 % (8-40) 02/28/18 06:25 Monocytes % [employer] 02/28/18 06:25 Monocytes % (Manual) 14 % (3.8-10.2) H 02/28/18 06:25 Eosinophils % [employer] 02/28/18 06:25 Eosinophils % (Manual) 4.0 % (0-4.5) 02/28/18 06:25 Basophils % [employer] 02/28/18 06:25 Basophils % (Manual) 0.0 % (0-2.0) 02/28/18 06:25 Myelocytes % (Man) 2 % (0-2) 02/28/18 06:25 Promyelocytes % (Man) 0 % (0-2) 02/28/18 06:25 Blast Cells % (Manual) 0 % (0-0) 02/28/18 06:25 Nucleated RBC % 0 % (0-0) 02/28/18 06:25 Metamyelocytes 0 % (0-2) 02/28/18 06:25 Platelet Estimate Normal 02/28/18 06:25 Anisocytosis 1+ 02/28/18 06:25 Microcytosis 1+ 02/28/18 06:25 PT with INR 14.20 SEC (9.7-13.0) H 02/25/18 17:20 INR 1.26 (0.82-1.09) H 02/25/18 17:20 PTT (Actin FS) 30.9 SECONDS (26.9-34.4) 02/25/18 17:20 Sodium 141 mmol/L (136-145) 02/28/18 06:25 Potassium 3.7 mmol/L (3.5-5.1) 02/28/18 06:25 Chloride 104 mmol/L (98-107) 02/28/18 06:25 Carbon Dioxide 27 mmol/L (21-32) 02/28/18 06:25 Anion Gap 10 (8-16) 02/28/18 06:25 BUN 9 mg/dL (7-18) D 02/28/18 06:25 Creatinine 1.1 mg/dL (0.7-1.3) 02/28/18 06:25 Creat Clearance w eGFR > 60 (>60) 02/28/18 06:25 POC Glucometer 118 UNITS (80-120) 02/28/18 06:06 Random Glucose 118 mg/dL (74-106) H D 02/28/18 06:25 Hemoglobin A1c % 7.1 % (4.8-6.0) H 02/26/18 12:05 Lactic Acid 1.7 mmol/L (0.0-2.0) 02/25/18 17:20 Calcium 8.4 mg/dL (8.5-10.1) L 02/28/18 06:25 Phosphorus 2.9 mg/dL (2.5-4.9) 02/26/18 06:00 Magnesium 2.4 mg/dL (1.8-2.4) 02/26/18 06:00 Total Bilirubin 2.3 mg/dL (0.2-1.0) H D 02/28/18 06:25 Direct Bilirubin 2.2 mg/dL (0.0-0.2) H 02/27/18 06:00 AST 32 U/L (15-37) 02/28/18 06:25 ALT 22 U/L (12-78) 02/28/18 06:25 Alkaline Phosphatase 116 U/L (45-117) 02/28/18 06:25 C-Reactive Protein 26.6 MG/DL (0.00-0.3) H 02/27/18 06:00 Total Protein 6.3 g/dl (6.4-8.2) L 02/28/18 06:25 Albumin 2.4 g/dl (3.4-5.0) L 02/28/18 06:25 Triglycerides 205 mg/dL (35-160) H D 02/27/18 06:00 Cholesterol Cancelled 02/26/18 12:05 Total LDL Cholesterol Cancelled 02/26/18 12:05 HDL Cholesterol Cancelled 02/26/18 12:05 Lipase 371 U/L (73-393) 02/28/18 06:25 - ....Imaging X-ray: Report Reviewed Problem List - Problems (1) Constipation Code(s): K59.00 - CONSTIPATION, UNSPECIFIED (2) Pancreatitis Code(s): K85.90 - ACUTE PANCREATITIS WITHOUT NECROSIS OR INFECTION, UNSP Qualifiers: Chronicity: acute Pancreatitis type: alcohol induced Acute pancreatitis complication: no infection or necrosis Qualified Code(s): K85.20 - Alcohol induced acute pancreatitis without necrosis or infection Assessment/Plan Clinically improved. Tolerating liquid diet and has bowel movements. Lipase normal. Transaminases and alk phos normal. Direct predominant bili 2.3. Advance diet. Okay to follow up as an outpatient in 1-2 weeks for liver chemistry blood work if remains asymptomatic.
--- NOTE | 2018-02-28 12:32 | DS ---
Physical Examination Vital Signs: Vital Signs Temperature 98.0 F 02/28/18 10:06 Pulse Rate 85 02/28/18 10:06 Respiratory Rate 20 02/28/18 10:06 Blood Pressure 138/84 02/28/18 10:06 O2 Sat by Pulse Oximetry (%) 99 02/28/18 09:00 Findings/Remarks: CHIEF COMPLAINT: abdominal pain PCP: Antoine HISTORY OF PRESENT ILLNESS: This is a 58 year old male with a past medical history of DM, HTN, iron deficiency anemia, GERD, HLD, gout who presented to the ED with abdominal pain x 6 days. Pt reports that he was seen by his PCP and started on miralax and enemas which he feels he did not self administer properly. He had an xray done a few days ago. He reports that he has had some liquid BMs since starting the miralax but feels there is much more in him and "nothing is moving". He denies any nausea or vomiting but states that the pain is in the upper part of his abdomen and his back. ER course was notable for: (1) lipase 475 with evidence of acute pancreatitis on CT scan (2)WBC 15.2, Lactic Acid WNL Recent Travel: pt denies PAST MEDICAL HISTORY: DM, HTN, iron deficiency anemia, GERD, HLD, gout PAST SURGICAL HISTORY: laminectomy L4-L5 R great toe bunionectomy Social History: Smoking: pt denies Alcohol: quit drinking 10 days ago, prior 1 pint of cognac daily Drugs: pt denies Family History: mother , heart disease age 79 sister , heart disease father age 90, s/p fall brother , HIV Constitutional: Yes: Calm Cardiovascular: Yes: Regular Rate and Rhythm, S1, S2 Respiratory: Yes: CTA Bilaterally Gastrointestinal: Yes: Normal Bowel Sounds, Soft Neurological: Yes: Alert, Oriented Labs: CBC, BMP 02/28/18 06:25 02/28/18 06:25 Discharge Summary Reason For Visit: PANCREATITIS Current Active Problems Constipation (Acute) Diabetes (Acute) HTN (hypertension) (Acute) Pancreatitis (Acute) Hospital Course: in the hospital Ct scan done shows acute pancreatitis NPO ivf seen by GI now much improved lipase trending down now having BM and passing gas and tolerated liquid diet to follow up as outpatient Condition: Guarded - Instructions Diet, Activity, Other Instructions: soft diet Referrals: Anthony Brennan MD [Staff Physician] - Teri Schultz MD [Primary Care Provider] - Disposition: HOME - Home Medications Comprehensive Discharge Medication List: Ambulatory Orders Amlodipine Besylate 5 mg PO DAILY 05/07/16 Colchicine 0.6 mg PO PRN PRN 05/07/16 Ergocalciferol (Vitamin D2) [Vitamin D2] 50,000 unit PO WEEKLY 05/07/16 Indomethacin 50 mg PO PRN #0 06/15/16
[2018-02-28 14:31] VITALS: BP 134/72; PULSE 81; TEMP 98.1
[2018-02-28] MEDS: morphine SULFATE 4 MG/ML VIAL IVPUSH PRN (15:04)
== END 2018-02-28 19:15 | disposition home or self-care (01) | DRG 439 ==
LOC: JER 14:56 → JERBED 02-26 00:33 → J7W 02-26 03:25
PROVIDERS: ADMIT Internal Medicine; ATTEND Family Medicine
DX: K85.90 Acute pancreatitis without necrosis or infection, unspecified (principal); K56.7 Ileus, unspecified; K59.00 Constipation, unspecified; I10 Essential (primary) hypertension; K21.9 Gastro-esophageal reflux disease without esophagitis; E78.5 Hyperlipidemia, unspecified; E11.9 Type 2 diabetes mellitus without complications; D50.9 Iron deficiency anemia, unspecified
CPT/HCPCS: 36415; 74019-TC-FY; 74021-TC-FY; 74176-TC; 76705-TC; 80048; 80053; 80061; 80076; 82962; 83036; 83605; 83690; 83721; 83735; 84100; 84478; 85025; 85610; 85730; 86140; 93005; 93010; 99282-25; J0131; J1644; J7030

== ENCOUNTER 2020-10-21 12:23 | Inpatient (IN) | payer OTHER, BC ==
[2020-10-21] MEDS ORDERED: DEXAMETHASONE SOD PHOSPHATE 10 MG/1 ML VIAL IVPUSH ONE (13:09)
[2020-10-21] MEDS ORDERED: DEXAMETHASONE SOD PHOSPHATE 10 MG/1 ML VIAL ONE (13:30)
[2020-10-21 13:44] LABS: BASO % 0.2 % (0-2.0); EOS % 0.5 % (0-4.5); HEMATOCRIT 38.3 % (35.4-49); HEMOGLOBIN 12.4 GM/dL (11.7-16.9); LYMPH % 13.9 % (8-40); MCH 24.6 pg (25.7-33.7); MCHC 32.4 g/dl (32.0-35.9); MEAN PLT VOLUME 8.2 fl (7.5-11.1); NEUT % 64.4 % (42.8-82.8); PLATELET COUNT 240 K/MM3 (134-434); RBC 5.05 M/mm3 (4.00-5.60); RDW 16.1 % (11.9-15.9); WHITE BLOOD COUNT 5.7 K/mm3 (4.0-10.0)
[2020-10-21 13:51] LABS: INR 1.19 (0.83-1.09); PROTHROMBIN TIME (PATIENT) 14.3 SEC (9.7-13.0)
[2020-10-21 13:54] LABS: ACTIVATED PTT 31.3 SECONDS (25.2-36.5)
[2020-10-21 14:06] LABS: CHLORIDE 102 mmol/L (98-107); POTASSIUM 3.6 mmol/L (3.5-5.1); SODIUM 137 mmol/L (136-145)
[2020-10-21 14:08] LABS: CALCIUM 7.8 mg/dL (8.5-10.1)
[2020-10-21 14:09] LABS: ALBUMIN 3.1 g/dl (3.4-5.0); ANION GAP 9 MMOL/L (8-16); BLOOD UREA NITROGEN 18.9 mg/dL (7-18); CO2 25 mmol/L (21-32); EPI CELLS 7 /uL (0-25.1); GLUCOSE,RANDOM 111 mg/dL (74-106); HYALINE CASTS 1 /uL (0-3.1); PH,URINE 5.5 (5.0-8.0); URINE APPEARANCE TURBID; URINE BACTERIA 497 /uL (0-1359); URINE BILIRUBIN NEGATIVE (NEGATIVE); URINE COLOR YELLOW; URINE GLUCOSE (UA) NEGATIVE (NEGATIVE); URINE KETONE NEGATIVE (NEGATIVE); URINE LEUK ESTERASE NEGATIVE (NEGATIVE); URINE NITRITE NEGATIVE (NEGATIVE); URINE PROTEIN 1+ (NEGATIVE); URINE RBC 10 /uL (0-23.9); URINE WBC 9 /uL (0-25.8)
[2020-10-21 14:12] LABS: BILIRUBIN,DIRECT 0.5 mg/dL (0.0-0.2); CREATININE 1.3 mg/dL (0.55-1.3); SGOT/AST 61 U/L (15-37); SGPT/ALT 41 U/L (13-61)
[2020-10-21 14:14] LABS: BILIRUBIN,TOTAL 0.8 mg/dL (0.2-1); TOT PROT 7.6 g/dl (6.4-8.2)
[2020-10-21 14:15] LABS: ALK PHOS 136 U/L (45-117)
[2020-10-21] MEDS ORDERED: SODIUM CHLORIDE 0.9% 500 ML INFUS.BAG IV ONE (14:21)
[2020-10-21 14:37] LABS: LDH 541 U/L (87-246)
[2020-10-21] MEDS ORDERED: LACTATED RINGERS SOLUTION 1,000 ML/1,000 ML INFUS.BAG IV STA (16:14)
[2020-10-21] MEDS ORDERED: COLCHICINE 0.6 MG CAP PO PRN (16:18)
[2020-10-21] MEDS ORDERED: PATIENT'S OWN MEDICATION (NON-FORMULARY) (Ergocalciferol (Vitamin D2) [Vitamin D2] 2,000 U PO SCH (16:30)
[2020-10-21] MEDS ORDERED: CEFTRIAXONE 1 GM in DEXTROSE 5%-WATER - 50 ML IVPB SCH (16:45)
[2020-10-21] MEDS ORDERED: CEFTRIAXONE 1 GM/50 ML BAG ONE (17:11)
[2020-10-21] MEDS: INSULIN SLIDING SCALE (NOVOLOG) 1 VIAL SQ SCH (17:57)
[2020-10-21] MEDS ORDERED: ZINC SULFATE 220 MG CAPSULE (FP) ONE (18:50)
[2020-10-21] MEDS: ZINC SULFATE 220 MG CAPSULE (FP) PO SCH (18:51)
[2020-10-21] MEDS: CHOLECALCIFEROL (VIT D3) 400 UNIT (10 MCG) TABLET PO SCH (19:18)
[2020-10-21] MEDS ORDERED: FAMOTIDINE 20 MG/50 ML IVPB 20 MG/50 ML MG IVPB ONE (22:29)
[2020-10-21] MEDS ORDERED: ASCORBIC ACID 500 MG TABLET (FP) ONE (22:29)
[2020-10-21] MEDS: ASCORBIC ACID 500 MG TABLET (FP) PO SCH (22:39)
[2020-10-21] MEDS: FAMOTIDINE 20 MG/50 ML IVPB 20 MG/50 ML MG IVPB SCH (22:39)
[2020-10-22] MEDS ORDERED: DEXAMETHASONE SOD PHOSPHATE 10 MG/1 ML VIAL IVPUSH SCH (03:00)
[2020-10-22 05:23] VITALS: BMI 51.0
[2020-10-22] MEDS: INSULIN SLIDING SCALE (NOVOLOG) 1 VIAL SQ SCH ×3 (06:45→17:22)
[2020-10-22 07:07] LABS: BASO % 0.3 % (0-2.0); HEMATOCRIT 34.9 % (35.4-49); HEMOGLOBIN 11.5 GM/dL (11.7-16.9); LYMPH % 10.4 % (8-40); MCH 24.8 pg (25.7-33.7); MEAN CELL VOLUME 75.3 fl (80-96); MEAN PLT VOLUME 8.5 fl (7.5-11.1); MONO % 17.9 % (3.8-10.2); NEUT % 71.4 % (42.8-82.8); PLATELET COUNT 273 K/MM3 (134-434); RBC 4.63 M/mm3 (4.00-5.60); RDW 15.9 % (11.9-15.9); WHITE BLOOD COUNT 5.5 K/mm3 (4.0-10.0)
[2020-10-22 07:15] LABS: POTASSIUM 3.9 mmol/L (3.5-5.1)
[2020-10-22 07:17] LABS: CALCIUM 7.6 mg/dL (8.5-10.1)
[2020-10-22 07:18] LABS: MAGNESIUM 2.2 mg/dL (1.8-2.4)
[2020-10-22 07:20] LABS: ALBUMIN 2.7 g/dl (3.4-5.0); BLOOD UREA NITROGEN 18.1 mg/dL (7-18)
[2020-10-22 07:22] LABS: BILIRUBIN,TOTAL 0.5 mg/dL (0.2-1); CREATININE 1.1 mg/dL (0.55-1.3); TOT PROT 7.1 g/dl (6.4-8.2)
[2020-10-22] MEDS: amLODIPine BESYLATE 5 MG TABLET (FP) PO SCH (09:21)
[2020-10-22] MEDS: ASCORBIC ACID 500 MG TABLET (FP) PO SCH ×2 (09:21→21:42)
[2020-10-22] MEDS: DEXAMETHASONE SOD PHOSPHATE 10 MG/1 ML VIAL IVPB SCH (09:21)
[2020-10-22] MEDS: FAMOTIDINE 20 MG/50 ML IVPB 20 MG/50 ML MG IVPB SCH (09:22)
[2020-10-22] MEDS: APIXABAN 5 MG TABLET PO SCH ×2 (09:22→21:42)
[2020-10-22] MEDS: CHOLECALCIFEROL (VIT D3) 400 UNIT (10 MCG) TABLET PO SCH (09:22)
[2020-10-22] MEDS: ZINC SULFATE 220 MG CAPSULE (FP) PO SCH (09:22)
[2020-10-22] MEDS ORDERED: cefTRIAXone SODIUM 1 GM VIAL ONE (09:59)
[2020-10-22] MEDS ORDERED: DEXAMETHASONE SOD PHOSPHATE 10 MG/1 ML VIAL IVPB SCH (10:00)
[2020-10-22] MEDS ORDERED: DEXAMETHASONE 4 MG TABLET (FP) PO SCH (10:00)
[2020-10-22] MEDS ORDERED: DEXTROSE 5%-WATER - 50 ML IVPB ONE (10:00)
[2020-10-22] MEDS ORDERED: ENOXAPARIN NA (PORCINE) 40 MG/0.4 ML DISP.SYRIN SQ SCH (10:00)
[2020-10-22 10:43] LABS: N-TERMINAL BNP 40.9 pg/ml (5-125)
[2020-10-22] MEDS: CHOLECALCIFEROL (VIT D3) 1,000 UNIT (25 MCG) TABLET PO SCH (11:28)
[2020-10-22] MEDS: CEFTRIAXONE 1 GM in DEXTROSE 5%-WATER - 50 ML IVPB SCH (11:28)
[2020-10-22] MEDS ORDERED: REMDESIVIR 200 MG in SODIUM CHLORIDE 210 ML IVPB ONE (15:00)
[2020-10-22] MEDS: FAMOTIDINE 20 MG TABLET PO SCH (21:42)
[2020-10-23] MEDS: INSULIN SLIDING SCALE (NOVOLOG) 1 VIAL SQ SCH ×3 (05:59→17:54)
[2020-10-23] MEDS ORDERED: ACETAMINOPHEN 1000 MG/100 ML VIAL (NON FORMULARY) IVPB ONE (06:51)
[2020-10-23 08:18] LABS: BASO % 0.2 % (0-2.0); EOS % 0.2 % (0-4.5); HEMATOCRIT 33.3 % (35.4-49); HEMOGLOBIN 10.9 GM/dL (11.7-16.9); LYMPH % 12.5 % (8-40); MCH 24.8 pg (25.7-33.7); MCHC 32.8 g/dl (32.0-35.9); MEAN CELL VOLUME 75.5 fl (80-96); MEAN PLT VOLUME 7.6 fl (7.5-11.1); MONO % 14.8 % (3.8-10.2); NEUT % 72.3 % (42.8-82.8); PLATELET COUNT 326 K/MM3 (134-434); RBC 4.41 M/mm3 (4.00-5.60); RDW 15.6 % (11.9-15.9); WHITE BLOOD COUNT 8.4 K/mm3 (4.0-10.0)
[2020-10-23 08:28] LABS: POTASSIUM 3.6 mmol/L (3.5-5.1)
[2020-10-23 08:32] LABS: CALCIUM 7.7 mg/dL (8.5-10.1)
[2020-10-23 08:33] LABS: ALBUMIN 2.7 g/dl (3.4-5.0); BLOOD UREA NITROGEN 16.2 mg/dL (7-18); MAGNESIUM 2.5 mg/dL (1.8-2.4)
[2020-10-23 08:36] LABS: CREATININE 0.9 mg/dL (0.55-1.3); PHOSPHOROUS 2.7 mg/dL (2.5-4.9)
[2020-10-23 08:38] LABS: BILIRUBIN,TOTAL 0.5 mg/dL (0.2-1); TOT PROT 6.6 g/dl (6.4-8.2)
[2020-10-23] MEDS: ASCORBIC ACID 500 MG TABLET (FP) PO SCH ×2 (10:26→21:59)
[2020-10-23] MEDS: FAMOTIDINE 20 MG TABLET PO SCH ×2 (10:26→21:59)
[2020-10-23] MEDS: amLODIPine BESYLATE 5 MG TABLET (FP) PO SCH (10:26)
[2020-10-23] MEDS: ZINC SULFATE 220 MG CAPSULE (FP) PO SCH (10:26)
[2020-10-23] MEDS: CHOLECALCIFEROL (VIT D3) 1,000 UNIT (25 MCG) TABLET PO SCH (10:26)
[2020-10-23] MEDS: DEXAMETHASONE SOD PHOSPHATE 10 MG/1 ML VIAL IVPB SCH (10:27)
[2020-10-23] MEDS: APIXABAN 5 MG TABLET PO SCH ×2 (10:27→21:59)
[2020-10-23] MEDS ORDERED: cefTRIAXone SODIUM 1 GM VIAL ONE ×2 (11:16→11:19)
[2020-10-23] MEDS ORDERED: DEXTROSE 5%-WATER - 50 ML IVPB ONE ×2 (11:17→11:19)
[2020-10-23] MEDS: CEFTRIAXONE 1 GM in DEXTROSE 5%-WATER - 50 ML IVPB SCH (11:20)
[2020-10-23] MEDS: REMDESIVIR 100 MG in SODIUM CHLORIDE 230 ML IVPB SCH (15:35)
[2020-10-23] MEDS ORDERED: INSULIN (NOVOLOG) ASPART 100 UNITS/ML 10ML VIAL ONE (17:53)
[2020-10-24] MEDS: INSULIN SLIDING SCALE (NOVOLOG) 1 VIAL SQ SCH ×3 (06:00→17:12)
[2020-10-24 06:53] LABS: BASO % 0.1 % (0-2.0); EOS % 0.4 % (0-4.5); HEMOGLOBIN 11.3 GM/dL (11.7-16.9); LYMPH % 11.6 % (8-40); MCH 24.6 pg (25.7-33.7); MCHC 32.3 g/dl (32.0-35.9); MEAN CELL VOLUME 76.2 fl (80-96); MEAN PLT VOLUME 7.8 fl (7.5-11.1); NEUT % 72.9 % (42.8-82.8); PLATELET COUNT 382 K/MM3 (134-434); RDW 15.9 % (11.9-15.9); WHITE BLOOD COUNT 10.6 K/mm3 (4.0-10.0)
[2020-10-24 07:12] LABS: CALCIUM 7.9 mg/dL (8.5-10.1)
[2020-10-24 07:13] LABS: ALBUMIN 2.9 g/dl (3.4-5.0); BLOOD UREA NITROGEN 16.4 mg/dL (7-18); MAGNESIUM 2.2 mg/dL (1.8-2.4)
[2020-10-24 07:16] LABS: CREATININE 0.9 mg/dL (0.55-1.3); PHOSPHOROUS 2.8 mg/dL (2.5-4.9)
[2020-10-24 07:17] LABS: BILIRUBIN,TOTAL 0.5 mg/dL (0.2-1); TOT PROT 7.4 g/dl (6.4-8.2)
[2020-10-24 10:38] LABS: ANISOCYTOSIS 1+; MACROCYTOSIS 0; OVALOCYTE 1+; PLATELET ESTIMATE NORMAL; TARGET CELLS 2+; TEAR DROP CELLS 1+
[2020-10-24] MEDS: FAMOTIDINE 20 MG TABLET PO SCH ×2 (10:55→21:51)
[2020-10-24] MEDS: amLODIPine BESYLATE 5 MG TABLET (FP) PO SCH (10:55)
[2020-10-24] MEDS: ZINC SULFATE 220 MG CAPSULE (FP) PO SCH (10:55)
[2020-10-24] MEDS: APIXABAN 5 MG TABLET PO SCH ×2 (10:55→21:51)
[2020-10-24] MEDS: DEXAMETHASONE SOD PHOSPHATE 10 MG/1 ML VIAL IVPB SCH (10:55)
[2020-10-24] MEDS: ASCORBIC ACID 500 MG TABLET (FP) PO SCH ×2 (10:55→21:51)
[2020-10-24] MEDS: CHOLECALCIFEROL (VIT D3) 1,000 UNIT (25 MCG) TABLET PO SCH (10:56)
[2020-10-24] MEDS: REMDESIVIR 100 MG in SODIUM CHLORIDE 230 ML IVPB SCH (11:33)
[2020-10-25] MEDS: INSULIN SLIDING SCALE (NOVOLOG) 1 VIAL SQ SCH ×3 (06:17→16:28)
[2020-10-25 08:36] LABS: BASO % 0.2 % (0-2.0); EOS % 0.9 % (0-4.5); HEMATOCRIT 34.9 % (35.4-49); HEMOGLOBIN 11.5 GM/dL (11.7-16.9); LYMPH % 18.7 % (8-40); MCH 24.9 pg (25.7-33.7); MCHC 32.9 g/dl (32.0-35.9); MEAN CELL VOLUME 75.6 fl (80-96); MEAN PLT VOLUME 7.3 fl (7.5-11.1); MONO % 13.3 % (3.8-10.2); NEUT % 66.9 % (42.8-82.8); PLATELET COUNT 355 K/MM3 (134-434); RBC 4.61 M/mm3 (4.00-5.60); RDW 16.2 % (11.9-15.9); WHITE BLOOD COUNT 9.7 K/mm3 (4.0-10.0)
[2020-10-25] MEDS ORDERED: PT OWN MED DRAWER 7, Y5N ONE ×2 (08:47→12:58)
[2020-10-25 09:00] LABS: ALBUMIN 2.7 g/dl (3.4-5.0); CALCIUM 7.7 mg/dL (8.5-10.1)
[2020-10-25 09:01] LABS: BLOOD UREA NITROGEN 14.5 mg/dL (7-18); MAGNESIUM 2.1 mg/dL (1.8-2.4)
[2020-10-25 09:03] LABS: BILIRUBIN,TOTAL 0.5 mg/dL (0.2-1)
[2020-10-25 09:04] LABS: CREATININE 0.8 mg/dL (0.55-1.3); TOT PROT 6.6 g/dl (6.4-8.2)
[2020-10-25 09:09] LABS: PHOSPHOROUS 3.2 mg/dL (2.5-4.9)
[2020-10-25] MEDS: DEXAMETHASONE SOD PHOSPHATE 10 MG/1 ML VIAL IVPB SCH (10:20)
[2020-10-25] MEDS: ZINC SULFATE 220 MG CAPSULE (FP) PO SCH (10:21)
[2020-10-25] MEDS: amLODIPine BESYLATE 5 MG TABLET (FP) PO SCH (10:21)
[2020-10-25] MEDS: ASCORBIC ACID 500 MG TABLET (FP) PO SCH ×2 (10:21→21:16)
[2020-10-25] MEDS: CHOLECALCIFEROL (VIT D3) 1,000 UNIT (25 MCG) TABLET PO SCH (10:21)
[2020-10-25] MEDS: APIXABAN 5 MG TABLET PO SCH ×2 (10:21→21:17)
[2020-10-25] MEDS: FAMOTIDINE 20 MG TABLET PO SCH ×2 (10:22→21:17)
[2020-10-25 10:45] LABS: ANISOCYTOSIS 0; HELMET CELLS 0; HOWELL-JOLLY BODIES 0; MACROCYTOSIS 0; OVALOCYTE 0; PLATELET ESTIMATE NORMAL; ROULEAU 0; SICKELED CELLS 0; TARGET CELLS 0; TEAR DROP CELLS 0; TOXIC GRANULATION 0
[2020-10-25] MEDS: REMDESIVIR 100 MG in SODIUM CHLORIDE 230 ML IVPB SCH (11:18)
[2020-10-26] MEDS: INSULIN SLIDING SCALE (NOVOLOG) 1 VIAL SQ SCH ×3 (06:36→17:03)
[2020-10-26 07:15] LABS: BASO % 0.2 % (0-2.0); EOS % 0.9 % (0-4.5); HEMATOCRIT 36.5 % (35.4-49); HEMOGLOBIN 11.9 GM/dL (11.7-16.9); LYMPH % 20.1 % (8-40); MCH 24.8 pg (25.7-33.7); MCHC 32.7 g/dl (32.0-35.9); MEAN CELL VOLUME 75.9 fl (80-96); MEAN PLT VOLUME 7.3 fl (7.5-11.1); MONO % 11.5 % (3.8-10.2); NEUT % 67.3 % (42.8-82.8); PLATELET COUNT 383 K/MM3 (134-434); WHITE BLOOD COUNT 10.2 K/mm3 (4.0-10.0)
[2020-10-26 07:31] LABS: POTASSIUM 4.2 mmol/L (3.5-5.1)
[2020-10-26 07:35] LABS: BLOOD UREA NITROGEN 15.8 mg/dL (7-18); CALCIUM 8.2 mg/dL (8.5-10.1)
[2020-10-26 07:36] LABS: ALBUMIN 2.9 g/dl (3.4-5.0); MAGNESIUM 2.1 mg/dL (1.8-2.4)
[2020-10-26 07:39] LABS: CREATININE 0.8 mg/dL (0.55-1.3); PHOSPHOROUS 3.4 mg/dL (2.5-4.9)
[2020-10-26 07:40] LABS: BILIRUBIN,TOTAL 0.5 mg/dL (0.2-1)
[2020-10-26 09:26] LABS: ANISOCYTOSIS 0; MACROCYTOSIS 0; PLATELET ESTIMATE NORMAL; TARGET CELLS 1+
[2020-10-26] MEDS: ASCORBIC ACID 500 MG TABLET (FP) PO SCH ×2 (10:52→20:59)
[2020-10-26] MEDS: ZINC SULFATE 220 MG CAPSULE (FP) PO SCH (10:52)
[2020-10-26] MEDS: APIXABAN 5 MG TABLET PO SCH (10:52)
[2020-10-26] MEDS: REMDESIVIR 100 MG in SODIUM CHLORIDE 230 ML IVPB SCH (10:52)
[2020-10-26] MEDS: CHOLECALCIFEROL (VIT D3) 1,000 UNIT (25 MCG) TABLET PO SCH (10:52)
[2020-10-26] MEDS: amLODIPine BESYLATE 5 MG TABLET (FP) PO SCH (10:53)
[2020-10-26] MEDS: FAMOTIDINE 20 MG TABLET PO SCH ×2 (10:53→20:59)
[2020-10-26] MEDS: DEXAMETHASONE SOD PHOSPHATE 10 MG/1 ML VIAL IVPB SCH (10:54)
[2020-10-26] MEDS: ENOXAPARIN NA (PORCINE) 120 MG/0.8 ML DISP.SYRIN SQ SCH (20:59)
[2020-10-27] MEDS: INSULIN SLIDING SCALE (NOVOLOG) 1 VIAL SQ SCH ×3 (06:07→16:42)
[2020-10-27 08:10] LABS: POTASSIUM 4.4 mmol/L (3.5-5.1)
[2020-10-27 08:41] LABS: ALBUMIN 2.7 g/dl (3.4-5.0)
[2020-10-27 08:42] LABS: BLOOD UREA NITROGEN 17.5 mg/dL (7-18); CALCIUM 8.2 mg/dL (8.5-10.1)
[2020-10-27 08:44] LABS: CREATININE 0.8 mg/dL (0.55-1.3); PHOSPHOROUS 3.7 mg/dL (2.5-4.9)
[2020-10-27 08:46] LABS: BILIRUBIN,TOTAL 0.5 mg/dL (0.2-1); TOT PROT 6.6 g/dl (6.4-8.2)
[2020-10-27] MEDS: amLODIPine BESYLATE 5 MG TABLET (FP) PO SCH (09:14)
[2020-10-27] MEDS: CHOLECALCIFEROL (VIT D3) 1,000 UNIT (25 MCG) TABLET PO SCH (09:14)
[2020-10-27] MEDS: ASCORBIC ACID 500 MG TABLET (FP) PO SCH ×2 (09:14→22:06)
[2020-10-27] MEDS: DEXAMETHASONE SOD PHOSPHATE 10 MG/1 ML VIAL IVPB SCH (09:14)
[2020-10-27] MEDS: ZINC SULFATE 220 MG CAPSULE (FP) PO SCH (09:14)
[2020-10-27] MEDS: FAMOTIDINE 20 MG TABLET PO SCH ×2 (09:14→22:06)
[2020-10-27] MEDS ORDERED: PT OWN MED DRAWER 7, Y5N ONE ×2 (09:16→20:48)
[2020-10-27] MEDS: ENOXAPARIN NA (PORCINE) 120 MG/0.8 ML DISP.SYRIN SQ SCH ×2 (09:44→22:05)
[2020-10-28 06:27] VITALS: BP 112/71; TEMP 97.4
[2020-10-28] MEDS: INSULIN SLIDING SCALE (NOVOLOG) 1 VIAL SQ SCH ×2 (06:36→11:51)
[2020-10-28 06:40] LABS: BASO % 0.4 % (0-2.0); EOS % 0.5 % (0-4.5); HEMATOCRIT 34.8 % (35.4-49); HEMOGLOBIN 11.1 GM/dL (11.7-16.9); LYMPH % 22.1 % (8-40); MCH 24.5 pg (25.7-33.7); MCHC 31.9 g/dl (32.0-35.9); MEAN CELL VOLUME 76.6 fl (80-96); MONO % 9.8 % (3.8-10.2); NEUT % 67.2 % (42.8-82.8); PLATELET COUNT 353 K/MM3 (134-434); RBC 4.54 M/mm3 (4.00-5.60); RDW 15.9 % (11.9-15.9); WHITE BLOOD COUNT 10.8 K/mm3 (4.0-10.0)
[2020-10-28 06:59] LABS: POTASSIUM 4.7 mmol/L (3.5-5.1)
[2020-10-28 07:04] LABS: ALBUMIN 2.8 g/dl (3.4-5.0); CALCIUM 8.1 mg/dL (8.5-10.1)
[2020-10-28 07:05] LABS: BLOOD UREA NITROGEN 20.2 mg/dL (7-18); MAGNESIUM 1.9 mg/dL (1.8-2.4)
[2020-10-28 07:08] LABS: CREATININE 0.9 mg/dL (0.55-1.3); PHOSPHOROUS 4.1 mg/dL (2.5-4.9)
[2020-10-28 07:09] LABS: BILIRUBIN,TOTAL 0.5 mg/dL (0.2-1); TOT PROT 6.5 g/dl (6.4-8.2)
[2020-10-28 08:37] LABS: ANISOCYTOSIS 2+; MACROCYTOSIS 0; PLATELET ESTIMATE NORMAL
[2020-10-28] MEDS: DEXAMETHASONE SOD PHOSPHATE 10 MG/1 ML VIAL IVPB SCH (09:21)
[2020-10-28] MEDS: amLODIPine BESYLATE 5 MG TABLET (FP) PO SCH (09:21)
[2020-10-28] MEDS: ASCORBIC ACID 500 MG TABLET (FP) PO SCH (09:21)
[2020-10-28] MEDS: ZINC SULFATE 220 MG CAPSULE (FP) PO SCH (09:21)
[2020-10-28] MEDS: CHOLECALCIFEROL (VIT D3) 1,000 UNIT (25 MCG) TABLET PO SCH (09:21)
[2020-10-28] MEDS: FAMOTIDINE 20 MG TABLET PO SCH (09:21)
[2020-10-28 09:46] VITALS: PULSE 88
[2020-10-28] MEDS: ENOXAPARIN NA (PORCINE) 120 MG/0.8 ML DISP.SYRIN SQ SCH (09:50)
== END 2020-10-28 19:04 | disposition home or self-care (01) | DRG 177 ==
LOC: JER 12:23 → JERBED 17:03 → J4W 10-22 04:26
PROVIDERS: ADMIT Family Medicine; ATTEND Internal Medicine
PROC: 8E0ZXY6 Isolation (ICD-10-PCS; 2020-10-21)
PROC: XW13325 Transfusion of Convalescent Plasma (Nonautologous) into Peripheral Vein, Percutaneous Approach, New Technology Group 5 (ICD-10-PCS; principal; 2020-10-22)
PROC: XW033E5 Introduction of Remdesivir Anti-infective into Peripheral Vein, Percutaneous Approach, New Technology Group 5 (ICD-10-PCS; 2020-10-22)
DX: U07.1 COVID-19 (principal); J12.82 Pneumonia due to coronavirus disease 2019; J96.01 Acute respiratory failure with hypoxia; E87.2 Acidosis; Z68.43 Body mass index [BMI] 50.0-59.9, adult; E66.01 Morbid (severe) obesity due to excess calories; I10 Essential (primary) hypertension; E78.5 Hyperlipidemia, unspecified; E11.9 Type 2 diabetes mellitus without complications; M10.9 Gout, unspecified; D50.0 Iron deficiency anemia secondary to blood loss (chronic); K21.9 Gastro-esophageal reflux disease without esophagitis; E86.0 Dehydration; L81.8 Other specified disorders of pigmentation
CPT/HCPCS: 36415; 36430; 71045-TC-FY; 80053; 81003; 82248; 82550; 82553; 82728; 82962; 83036; 83605; 83615; 83735; 83880; 84100; 84484; 85025; 85379; 85610; 85730; 86140; 86769; 86850; 86900; 86901; 87040; 87086; 87899; 93005; 93010; 94761; 99285-25; C9399; C9803; J0131; J1100; P9017; U0003

== ENCOUNTER 2021-03-26 04:43 | Day surgery (SDC) | payer OTHER, BC ==
[2021-03-21 15:14] VITALS: BMI 51.0
[2021-03-26] MEDS ORDERED: ROPIVACAINE HCL 0.5% 30ML VIAL ONE (08:29)
[2021-03-26] MEDS ORDERED: MIDAZOLAM HCL 2 MG/2 ML SINGLE DOSE VIAL ONE ×5 (08:30→09:55)
[2021-03-26] MEDS ORDERED: PROPOFOL 20 ML ONE (08:35)
[2021-03-26] MEDS ORDERED: DESFLURANE GAS 240 ML BOTTLE IH ONE (08:43)
[2021-03-26] MEDS ORDERED: ceFAZolin SODIUM 1 GM VIAL IVPB ONE (09:15)
[2021-03-26] MEDS ORDERED: KETAMINE HCL 200 MG/20 ML VIAL ONE (09:20)
[2021-03-26] MEDS ORDERED: LIDOCAINE HCL 2% (20ML MULTI-DOSE VIAL) ONE ×2 (09:21→09:29)
[2021-03-26] MEDS ORDERED: LIDOCAINE HCL 2% (50ML VIAL) INF ONE (09:28)
[2021-03-26] MEDS ORDERED: LABETALOL HCL 5 MG/1 ML (100MG/20 ML VIAL) ONE (09:50)
[2021-03-26] MEDS ORDERED: oxyCODONE HCL 5 MG TABLET PO PRN ×2 (09:54)
[2021-03-26] MEDS ORDERED: ONDANSETRON 4 MG/2 ML VIAL IVPUSH PRN (09:54)
[2021-03-26] MEDS ORDERED: LACTATED RINGERS SOLUTION 1,000 ML IV SCH (10:00)
[2021-03-26 19:26] VITALS: BP 130/85; PULSE 80; TEMP 98.2
== END 2021-03-26 15:30 | disposition home or self-care (01) ==
LOC: JASU-SURG 04:43
PROVIDERS: ATTEND Orthopaedic Surgery
PROC: 0PBB4ZZ Excision of Left Clavicle, Percutaneous Endoscopic Approach (ICD-10-PCS; 2021-03-26)
PROC: 0RNK4ZZ Release Left Shoulder Joint, Percutaneous Endoscopic Approach (ICD-10-PCS; principal; 2021-03-26 09:00)
DX: M75.42 Impingement syndrome of left shoulder (principal); E11.9 Type 2 diabetes mellitus without complications; E66.01 Morbid (severe) obesity due to excess calories; I10 Essential (primary) hypertension; G47.30 Sleep apnea, unspecified
CPT/HCPCS: 94760

== ENCOUNTER 2021-08-08 14:04 | Inpatient (IN) | payer OTHER, BC ==
[2021-08-08] MEDS ORDERED: SODIUM CHLORIDE 1,000 ML IV STA ×2 (15:19→18:05)
[2021-08-08] MEDS ORDERED: ONDANSETRON 4 MG/2 ML VIAL IVPUSH ONE (15:20)
[2021-08-08] MEDS ORDERED: ACETAMINOPHEN 1000 MG/100 ML VIAL IVPB ONE (15:20)
[2021-08-08] MEDS ORDERED: ACETAMINOPHEN INJECTION 100 ML IVPB ONE (15:32)
[2021-08-08] MEDS ORDERED: ONDANSETRON 4 MG/2 ML VIAL ONE (15:32)
[2021-08-08 16:10] LABS: CHLORIDE 105 mmol/L (98-107); SODIUM 139 mmol/L (136-145)
[2021-08-08 16:13] LABS: ALBUMIN 3.2 g/dl (3.4-5.0); ANION GAP 11 MMOL/L (8-16); BLOOD UREA NITROGEN 13.4 mg/dL (7-18); CALCIUM 8.6 mg/dL (8.5-10.1); CO2 23 mmol/L (21-32); GLUCOSE,RANDOM 99 mg/dL (74-106); LIPASE 771 U/L (73-393)
[2021-08-08 16:15] LABS: CREATININE 1.7 mg/dL (0.55-1.3); SGOT/AST 13 U/L (15-37); SGPT/ALT 17 U/L (13-61)
[2021-08-08 16:18] LABS: BILIRUBIN,TOTAL 1.6 mg/dL (0.2-1); TOT PROT 7.5 g/dl (6.4-8.2)
[2021-08-08 16:19] LABS: ALK PHOS 98 U/L (45-117)
[2021-08-08 18:34] LABS: HEMATOCRIT 40.8 % (35.4-49); HEMOGLOBIN 13.2 GM/dL (11.7-16.9); MCH 25.1 pg (25.7-33.7); MCHC 32.2 g/dl (32.0-35.9); MEAN CELL VOLUME 77.8 fl (80-96); MEAN PLT VOLUME 9.2 fl (7.5-11.1); PLATELET COUNT 176 10^3/uL (134-434); RBC 5.25 M/mm3 (4.00-5.60); RDW 16.1 % (11.9-15.9); WHITE BLOOD COUNT 15.8 K/mm3 (4.0-10.0)
[2021-08-08 19:26] LABS: ANISOCYTOSIS 0; MACROCYTOSIS 0; PLATELET ESTIMATE NORMAL
[2021-08-08] MEDS ORDERED: ONDANSETRON 4 MG/2 ML VIAL IVPUSH PRN (22:00)
[2021-08-09] MEDS: SODIUM CHLORIDE 1,000 ML IV SCH ×3 (01:20→07:46)
[2021-08-09] MEDS: INSULIN SLIDING SCALE (NOVOLOG) 1 VIAL SQ SCH ×5 (01:35→23:34)
[2021-08-09 01:57] LABS: EPI CELLS >36 /uL (0-25.1); HYALINE CASTS 109 /uL (0-3.1); URINE APPEARANCE CLOUDY; URINE BILIRUBIN 2+ (NEGATIVE); URINE COLOR ORANGE; URINE GLUCOSE (UA) NEGATIVE (NEGATIVE); URINE KETONE TRACE (NEGATIVE); URINE LEUK ESTERASE 1+ (NEGATIVE); URINE NITRITE POSITIVE (NEGATIVE); URINE PROTEIN 1+ (NEGATIVE); URINE WBC 114 /uL (0-25.8)
[2021-08-09] MEDS ORDERED: morphine SULFATE 4 MG/ML VIAL IVPUSH ONE (01:57)
[2021-08-09] MEDS: HEPARIN NA (PORCINE) 5,000 UNITS/ML 1ML VIAL SQ SCH ×3 (05:34→21:38)
[2021-08-09 08:31] LABS: BASO % 0.4 % (0-2.0); EOS % 2.2 % (0-4.5); HEMATOCRIT 35.2 % (35.4-49); HEMOGLOBIN 11.3 GM/dL (11.7-16.9); LYMPH % 13.1 % (8-40); MCH 25.1 pg (25.7-33.7); MCHC 32.2 g/dl (32.0-35.9); MEAN CELL VOLUME 77.9 fl (80-96); MEAN PLT VOLUME 8.8 fl (7.5-11.1); MONO % 12.4 % (3.8-10.2); NEUT % 71.9 % (42.8-82.8); PLATELET COUNT 155 10^3/uL (134-434); RBC 4.52 M/mm3 (4.00-5.60); RDW 15.7 % (11.9-15.9); WHITE BLOOD COUNT 13.5 K/mm3 (4.0-10.0)
[2021-08-09 08:45] LABS: INR 1.18 (0.83-1.09); PROTHROMBIN TIME (PATIENT) 13.8 SEC (9.7-13.0)
[2021-08-09 08:48] LABS: CALCIUM 7.7 mg/dL (8.5-10.1)
[2021-08-09 08:49] LABS: ALBUMIN 2.8 g/dl (3.4-5.0); BLOOD UREA NITROGEN 23.2 mg/dL (7-18)
[2021-08-09 08:52] LABS: CREATININE 2.1 mg/dL (0.55-1.3)
[2021-08-09 08:53] LABS: BILIRUBIN,TOTAL 1.9 mg/dL (0.2-1); TOT PROT 6.5 g/dl (6.4-8.2)
[2021-08-09] MEDS ORDERED: PT OWN MED DRAWER 7, Y5N ONE (10:15)
[2021-08-09] MEDS: PANTOPRAZOLE SODIUM 40 MG VIAL IVPUSH SCH (10:18)
[2021-08-09] MEDS ORDERED: SODIUM CHLORIDE 1,000 ML IV STA (14:12)
[2021-08-09] MEDS: LACTATED RINGERS SOLUTION 1,000 ML/1,000 ML INFUS.BAG IV SCH ×2 (16:04→23:19)
[2021-08-09 17:07] LABS: EPI CELLS 11 /uL (0-25.1); HYALINE CASTS 2 /uL (0-3.1); PH,URINE 5.5 (5.0-8.0); URINE APPEARANCE CLEAR; URINE BILIRUBIN 2+ (NEGATIVE); URINE COLOR DK YELLOW; URINE GLUCOSE (UA) NEGATIVE (NEGATIVE); URINE KETONE TRACE (NEGATIVE); URINE LEUK ESTERASE TRACE (NEGATIVE); URINE NITRITE POSITIVE (NEGATIVE); URINE PROTEIN 1+ (NEGATIVE); URINE RBC 11 /uL (0-23.9); URINE UROBILINOGEN 4.0 E.U/dl mg/dL (0.2-1.0); URINE WBC 10 /uL (0-25.8)
[2021-08-09] MEDS: ACETAMINOPHEN 325 MG TABLET (FP) PO PRN ×2 (17:31→23:18)
[2021-08-10] MEDS: HEPARIN NA (PORCINE) 5,000 UNITS/ML 1ML VIAL SQ SCH ×3 (05:05→21:26)
[2021-08-10] MEDS: ACETAMINOPHEN 325 MG TABLET (FP) PO PRN ×4 (05:05→23:27)
[2021-08-10] MEDS: INSULIN SLIDING SCALE (NOVOLOG) 1 VIAL SQ SCH ×3 (05:08→17:05)
[2021-08-10] MEDS: LACTATED RINGERS SOLUTION 1,000 ML/1,000 ML INFUS.BAG IV SCH ×4 (06:48→19:52)
[2021-08-10 08:56] LABS: BASO % 0.5 % (0-2.0); EOS % 2.6 % (0-4.5); HEMATOCRIT 31.7 % (35.4-49); HEMOGLOBIN 10.5 GM/dL (11.7-16.9); LYMPH % 12.4 % (8-40); MCH 25.8 pg (25.7-33.7); MCHC 33.1 g/dl (32.0-35.9); MONO % 12.5 % (3.8-10.2); PLATELET COUNT 145 10^3/uL (134-434); RBC 4.07 M/mm3 (4.00-5.60); RDW 15.8 % (11.9-15.9); WHITE BLOOD COUNT 10.6 K/mm3 (4.0-10.0)
[2021-08-10 09:39] LABS: ALBUMIN 2.7 g/dl (3.4-5.0); BLOOD UREA NITROGEN 15.2 mg/dL (7-18)
[2021-08-10] MEDS: PANTOPRAZOLE SODIUM 40 MG VIAL IVPUSH SCH (09:40)
[2021-08-10 09:41] LABS: CALCIUM 8.2 mg/dL (8.5-10.1)
[2021-08-10 09:42] LABS: CREATININE 0.9 mg/dL (0.55-1.3)
[2021-08-10 09:44] LABS: BILIRUBIN,TOTAL 2.8 mg/dL (0.2-1); TOT PROT 6.5 g/dl (6.4-8.2)
[2021-08-10 19:53] VITALS: BMI 50.4
[2021-08-11] MEDS: INSULIN SLIDING SCALE (NOVOLOG) 1 VIAL SQ SCH ×4 (00:51→17:55)
[2021-08-11] MEDS ORDERED: KETOROLAC TROMETHAMINE 30 MG/1 ML VIAL IVPUSH ONE (02:08)
[2021-08-11] MEDS: LACTATED RINGERS SOLUTION 1,000 ML/1,000 ML INFUS.BAG IV SCH ×3 (02:20→16:18)
[2021-08-11] MEDS: HEPARIN NA (PORCINE) 5,000 UNITS/ML 1ML VIAL SQ SCH (05:37)
[2021-08-11] MEDS: ACETAMINOPHEN 325 MG TABLET (FP) PO PRN (06:18)
[2021-08-11] MEDS: PANTOPRAZOLE SODIUM 40 MG VIAL IVPUSH SCH (09:43)
[2021-08-11] MEDS ORDERED: COLCHICINE 0.6 MG CAP PO ONE ×2 (11:24→16:15)
[2021-08-11 12:49] LABS: BASO % 0.8 % (0-2.0); EOS % 1.7 % (0-4.5); HEMOGLOBIN 10.8 GM/dL (11.7-16.9); LYMPH % 13.7 % (8-40); MCH 25.7 pg (25.7-33.7); MCHC 32.7 g/dl (32.0-35.9); MEAN CELL VOLUME 78.6 fl (80-96); MEAN PLT VOLUME 8.5 fl (7.5-11.1); MONO % 11.8 % (3.8-10.2); PLATELET COUNT 169 10^3/uL (134-434); RDW 15.3 % (11.9-15.9); WHITE BLOOD COUNT 9.1 K/mm3 (4.0-10.0)
[2021-08-11 13:02] LABS: INR 1.11 (0.83-1.09)
[2021-08-11 13:13] LABS: ALBUMIN 2.8 g/dl (3.4-5.0); BLOOD UREA NITROGEN 8.5 mg/dL (7-18); CALCIUM 8.8 mg/dL (8.5-10.1)
[2021-08-11 13:15] LABS: BILIRUBIN,DIRECT 1.2 mg/dL (0.0-0.2)
[2021-08-11 13:17] LABS: BILIRUBIN,TOTAL 1.9 mg/dL (0.2-1); CREATININE 0.8 mg/dL (0.55-1.3); TOT PROT 6.7 g/dl (6.4-8.2)
[2021-08-11] MEDS ORDERED: TETRACAINE/BENZOCAINE/BUTAMBEN 20 GM SPR TP ONE (14:33)
[2021-08-11] MEDS ORDERED: LIDOCAINE VISCOUS 2% ORAL/TOP 15 ML UNIT-DOSE CUP MM ONE (14:35)
[2021-08-11] MEDS ORDERED: PEG 3350/NA SULF BICARB CL/KCL 4000 ML SOLN.RECON PO ONE (17:00)
[2021-08-11] MEDS: BISACODYL 5 MG TABLET.DR (FP) PO ONE ×2 (17:04→17:12)
[2021-08-11] MEDS ORDERED: BISACODYL 5 MG TABLET.DR (FP) PO ONE (17:15)
[2021-08-12] MEDS: INSULIN SLIDING SCALE (NOVOLOG) 1 VIAL SQ SCH ×5 (00:02→23:54)
[2021-08-12] MEDS ORDERED: KETOROLAC TROMETHAMINE 30 MG/1 ML VIAL IVPUSH ONE (03:07)
[2021-08-12 08:50] LABS: BASO % 0.6 % (0-2.0); EOS % 2.1 % (0-4.5); HEMATOCRIT 31.9 % (35.4-49); HEMOGLOBIN 10.5 GM/dL (11.7-16.9); LYMPH % 18.8 % (8-40); MCH 25.6 pg (25.7-33.7); MEAN CELL VOLUME 77.5 fl (80-96); MEAN PLT VOLUME 8.8 fl (7.5-11.1); MONO % 14.4 % (3.8-10.2); NEUT % 64.1 % (42.8-82.8); PLATELET COUNT 175 10^3/uL (134-434); RBC 4.11 M/mm3 (4.00-5.60); RDW 15.2 % (11.9-15.9); WHITE BLOOD COUNT 8.9 K/mm3 (4.0-10.0)
[2021-08-12] MEDS: LACTATED RINGERS SOLUTION 1,000 ML/1,000 ML INFUS.BAG IV SCH ×2 (09:15→15:03)
[2021-08-12 09:21] LABS: CREATININE 0.8 mg/dL (0.55-1.3); URIC ACID 7.1 mg/dL (2.6-7.2)
[2021-08-12 09:22] LABS: BLOOD UREA NITROGEN 6.7 mg/dL (7-18)
[2021-08-12] MEDS ORDERED: PT OWN MED DRAWER 7, Y5N ONE ×3 (14:54→16:49)
[2021-08-12] MEDS: PANTOPRAZOLE 20 MG TABLET PO SCH (15:03)
[2021-08-12] MEDS ORDERED: COLCHICINE 0.6 MG CAP PO ONE (16:04)
[2021-08-12] MEDS ORDERED: KETOROLAC TROMETHAMINE 15 MG/ML VIAL IVPUSH ONE (22:00)
[2021-08-12] MEDS ORDERED: LIDOCAINE 5% TOPICAL PATCH TP SCH (22:00)
[2021-08-12] MEDS ORDERED: LIDOCAINE PATCH REMOVAL MC SCH (22:00)
[2021-08-13] MEDS: INSULIN SLIDING SCALE (NOVOLOG) 1 VIAL SQ SCH ×2 (05:34→11:36)
[2021-08-13 07:01] VITALS: BP 135/79; PULSE 82; TEMP 98.5
[2021-08-13 09:06] LABS: HEMATOCRIT 33.9 % (35.4-49); HEMOGLOBIN 10.9 GM/dL (11.7-16.9); LYMPH % 18.4 % (8-40); MCH 25.3 pg (25.7-33.7); MCHC 32.1 g/dl (32.0-35.9); MEAN CELL VOLUME 78.7 fl (80-96); MEAN PLT VOLUME 8.9 fl (7.5-11.1); MONO % 13.7 % (3.8-10.2); NEUT % 64.9 % (42.8-82.8); PLATELET COUNT 194 10^3/uL (134-434); RBC 4.31 M/mm3 (4.00-5.60); RDW 14.7 % (11.9-15.9); WHITE BLOOD COUNT 8.2 K/mm3 (4.0-10.0)
[2021-08-13 09:29] LABS: ALBUMIN 2.7 g/dl (3.4-5.0); BLOOD UREA NITROGEN 6.7 mg/dL (7-18)
[2021-08-13 09:32] LABS: CREATININE 0.8 mg/dL (0.55-1.3)
[2021-08-13 09:34] LABS: BILIRUBIN,TOTAL 1.1 mg/dL (0.2-1); TOT PROT 6.6 g/dl (6.4-8.2)
[2021-08-13] MEDS: PANTOPRAZOLE 20 MG TABLET PO SCH (09:54)
[2021-08-14 08:06] LABS: CARCINOEMBRYONIC ANTIGEN 1.4 ng/mL (0.0-4.7)
== END 2021-08-13 14:06 | disposition home or self-care (01) | DRG 439 ==
LOC: JER 14:04 → JERBED 18:04 → J8W 23:53
PROVIDERS: ADMIT Internal Medicine; ATTEND Family Medicine
PROC: 0DB68ZX Excision of Stomach, Via Natural or Artificial Opening Endoscopic, Diagnostic (ICD-10-PCS; 2021-08-11)
PROC: 0DJD8ZZ Inspection of Lower Intestinal Tract, Via Natural or Artificial Opening Endoscopic (ICD-10-PCS; principal; 2021-08-12 13:15)
DX: K85.20 Alcohol induced acute pancreatitis without necrosis or infection (principal); Z68.43 Body mass index [BMI] 50.0-59.9, adult; N17.9 Acute kidney failure, unspecified; E66.01 Morbid (severe) obesity due to excess calories; E11.9 Type 2 diabetes mellitus without complications; I10 Essential (primary) hypertension; M10.9 Gout, unspecified; F10.10 Alcohol abuse, uncomplicated; K86.1 Other chronic pancreatitis; K76.89 Other specified diseases of liver; K64.8 Other hemorrhoids
CPT/HCPCS: 36415; 74176-TC; 74178-TC; 76705-TC; 76775-TC; 80048; 80053; 80076; 81003; 82105; 82378; 82436; 82550; 82570; 82728; 82962; 83516; 83540; 83550; 83690; 84133; 84300; 84484; 84550; 85025; 85610; 85730; 86038; 86301; 86706; 86803; 87340; 87517; 88305-TC; 93005; 93010; 99285-25; C9803; J0131; J1644; Q9967; U0003; U0005

== ENCOUNTER 2021-08-27 04:48 | Day surgery (SDC) | payer OTHER, BC ==
[2021-08-26 14:31] VITALS: BMI 51.2
[2021-08-27 14:56] VITALS: BP 114/81; PULSE 82; TEMP 97.6
== END 2021-08-27 17:05 | disposition home or self-care (01) ==
LOC: JRADIR 04:48
PROVIDERS: ATTEND Nurse Practitioner Family
PROC: 0FB03ZX Excision of Liver, Percutaneous Approach, Diagnostic (ICD-10-PCS; principal; 2021-08-27)
DX: K76.0 Fatty (change of) liver, not elsewhere classified (principal)
CPT/HCPCS: 47000; 76942-TC; 87899; 88305-TC

== ENCOUNTER 2023-06-25 09:40 | Emergency (ER) | payer OTHER, BC ==
[2023-06-25 09:47] VITALS: BMI 46.7
[2023-06-25] MEDS ORDERED: KETOROLAC TROMETHAMINE 30 MG/1 ML VIAL IVPUSH ONE (11:16)
[2023-06-25] MEDS ORDERED: KETOROLAC TROMETHAMINE 30 MG/1 ML VIAL ONE (11:27)
[2023-06-25 12:29] LABS: BASO % 0.6 % (0-2.0); EOS % 3.3 % (0-4.5); HEMATOCRIT 40.8 % (35.4-49); HEMOGLOBIN 13.2 GM/dL (11.7-16.9); LYMPH % 20.7 % (8-40); MCHC 32.4 g/dl (32.0-35.9); MEAN CELL VOLUME 77.3 fl (80-96); MEAN PLT VOLUME 8.9 fl (7.5-11.1); MONO % 11.6 % (3.8-10.2); NEUT % 63.8 % (42.8-82.8); PLATELET COUNT 206 10^3/uL (134-434); RBC 5.28 M/mm3 (4.00-5.60)
[2023-06-25 12:32] LABS: INR 1.17 (0.83-1.09); PROTHROMBIN TIME (PATIENT) 13.5 SEC (9.7-13.0)
[2023-06-25 12:50] LABS: POTASSIUM 3.9 mmol/L (3.5-5.1)
[2023-06-25 12:52] LABS: CALCIUM 8.6 mg/dL (8.5-10.1); URINE APPEARANCE Clear; URINE BILIRUBIN 1+ (NEGATIVE); URINE COLOR Yellow; URINE GLUCOSE (UA) Negative (NEGATIVE); URINE KETONE Negative (NEGATIVE); URINE LEUK ESTERASE Negative (NEGATIVE); URINE NITRITE Negative (NEGATIVE); URINE PROTEIN Trace (NEGATIVE); URINE UROBILINOGEN >=8.0 E.U./dl mg/dL (0.2-1.0)
[2023-06-25 12:53] LABS: ALBUMIN 3.6 g/dl (3.4-5.0); BLOOD UREA NITROGEN 9.4 mg/dL (7-18)
[2023-06-25 12:56] LABS: CREATININE 0.9 mg/dL (0.55-1.3)
[2023-06-25 12:57] LABS: BILIRUBIN,TOTAL 0.8 mg/dL (0.2-1)
[2023-06-25 12:58] LABS: TOT PROT 7.6 g/dl (6.4-8.2)
[2023-06-25 15:56] VITALS: BP 110/72; PULSE 78; RESP 19; TEMP 97.9
== END 2023-06-25 15:56 | disposition home or self-care (01) ==
LOC: JERFT 09:40 → JER 09:40
PROC: 3E0333Z Introduction of Anti-inflammatory into Peripheral Vein, Percutaneous Approach (ICD-10-PCS; principal; 2023-06-25)
DX: R10.9 Unspecified abdominal pain (principal); R07.81 Pleurodynia; R11.2 Nausea with vomiting, unspecified
CPT/HCPCS: 36415; 71046-TC-FY; 71275-TC; 80053; 81003; 83690; 85025; 85379; 85610; 87086; 99285-25; Q9967

== ENCOUNTER 2024-01-10 08:25 | Inpatient (IN) | payer OTHER, BC ==
[2024-01-10] MEDS ORDERED: ACETAMINOPHEN INJECTION 100 ML IVPB ONE (09:19)
[2024-01-10] MEDS ORDERED: FAMOTIDINE 20 MG/50 ML IVPB 20 MG/50 ML MG IVPB ONE (09:20)
[2024-01-10] MEDS: SODIUM CHLORIDE 0.9% 500 ML INFUS.BAG IV ONE ×2 (09:26→11:30)
[2024-01-10] MEDS: ACETAMINOPHEN 1000 MG/100 ML BAG IVPB ONE (09:26)
[2024-01-10] MEDS: FAMOTIDINE 20 MG/50 ML IVPB 20 MG/50 ML MG IVPB ONE (09:27)
[2024-01-10 09:29] LABS: BASO % 0.3 % (0-2.0); EOS % 1.3 % (0-4.5); HEMATOCRIT 41.3 % (35.4-49); HEMOGLOBIN 13.1 GM/dL (11.7-16.9); LYMPH % 10.6 % (8-40); MCH 24.9 pg (25.7-33.7); MCHC 31.6 g/dl (32.0-35.9); MEAN CELL VOLUME 78.9 fl (80-96); MEAN PLT VOLUME 8.8 fl (7.5-11.1); MONO % 9.4 % (3.8-10.2); NEUT % 78.4 % (42.8-82.8); PLATELET COUNT 158 10^3/uL (134-434); RBC 5.24 M/mm3 (4.00-5.60); RDW 16.2 % (11.9-15.9)
[2024-01-10 09:41] LABS: INR 1.09 (0.83-1.09); PROTHROMBIN TIME (PATIENT) 12.6 SEC (9.7-13.0)
[2024-01-10 09:44] LABS: ACTIVATED PTT 32.6 SECONDS (25.2-36.5)
[2024-01-10 09:48] LABS: POTASSIUM 4.1 mmol/L (3.5-5.1)
[2024-01-10 09:50] LABS: ALBUMIN 3.6 g/dl (3.4-5.0); CALCIUM 8.6 mg/dL (8.5-10.1)
[2024-01-10 09:51] LABS: BLOOD UREA NITROGEN 11.3 mg/dL (7-18); MAGNESIUM 1.8 mg/dL (1.8-2.4)
[2024-01-10 09:54] LABS: PHOSPHOROUS 2.8 mg/dL (2.5-4.9)
[2024-01-10 09:55] LABS: BILIRUBIN,TOTAL 1.5 mg/dL (0.2-1); TOT PROT 7.3 g/dl (6.4-8.2)
[2024-01-10] MEDS ORDERED: ONDANSETRON 4 MG/2 ML VIAL ONE (11:14)
[2024-01-10] MEDS: ONDANSETRON 4 MG/2 ML VIAL IVPUSH ONE (11:30)
[2024-01-10] MEDS ORDERED: morphine SULFATE 4 MG/ML VIAL ONE (13:28)
[2024-01-10] MEDS: morphine CARPU-JECT 4 MG/1 ML DISP.SYRIN IVPUSH ONE (13:42)
[2024-01-10] MEDS: POTASSIUM CHLORIDE 10 MEQ in SODIUM CHLORIDE 0.45% 1,000 ML IVPB SCH (15:03)
[2024-01-10] MEDS: INSULIN ASPART SLIDING SCALE (NOVOLOG) 1 VIAL SQ SCH (16:30)
[2024-01-10] MEDS: LACTATED RINGERS SOLUTION 1,000 ML/1,000 ML INFUS.BAG IV SCH (17:24)
[2024-01-10 18:22] VITALS: BMI 45.6
[2024-01-10] MEDS: morphine SULFATE 4 MG/ML VIAL IVPUSH PRN (20:35)
[2024-01-11 08:31] LABS: BASO % 0.4 % (0-2.0); EOS % 1.2 % (0-4.5); HEMATOCRIT 36.8 % (35.4-49); HEMOGLOBIN 11.5 GM/dL (11.7-16.9); LYMPH % 9.5 % (8-40); MCH 24.8 pg (25.7-33.7); MCHC 31.4 g/dl (32.0-35.9); MEAN CELL VOLUME 78.9 fl (80-96); MEAN PLT VOLUME 8.8 fl (7.5-11.1); MONO % 11.3 % (3.8-10.2); NEUT % 77.6 % (42.8-82.8); PLATELET COUNT 152 10^3/uL (134-434); RBC 4.66 M/mm3 (4.00-5.60); RDW 16.2 % (11.9-15.9); WHITE BLOOD COUNT 14.3 K/mm3 (4.0-10.0)
[2024-01-11 08:41] LABS: POTASSIUM 3.5 mmol/L (3.5-5.1)
[2024-01-11 08:44] LABS: CALCIUM 8.1 mg/dL (8.5-10.1)
[2024-01-11 08:45] LABS: ALBUMIN 3.2 g/dl (3.4-5.0); BLOOD UREA NITROGEN 8.4 mg/dL (7-18); MAGNESIUM 1.7 mg/dL (1.8-2.4)
[2024-01-11 08:48] LABS: PHOSPHOROUS 2.9 mg/dL (2.5-4.9); URIC ACID 7.7 mg/dL (2.6-7.2)
[2024-01-11 08:49] LABS: BILIRUBIN,TOTAL 1.9 mg/dL (0.2-1)
[2024-01-11 08:50] LABS: TOT PROT 6.6 g/dl (6.4-8.2)
[2024-01-11] MEDS ORDERED: ENOXAPARIN NA (PORCINE) 40 MG/0.4 ML DISP.SYRIN SQ SCH (10:00)
[2024-01-11] MEDS: LACTATED RINGERS SOLUTION 1,000 ML/1,000 ML INFUS.BAG IV SCH (12:54)
[2024-01-11 14:54] VITALS: RESP 18
[2024-01-11] MEDS: IRON SUCROSE INJECTION 200 MG in SODIUM CHLORIDE 100 ML IVPB ONE (17:36)
[2024-01-11] MEDS: KETOROLAC TROMETHAMINE 15 MG/ML VIAL IVPUSH ONE (23:27)
[2024-01-12] MEDS: IRON SUCROSE INJECTION 200 MG in SODIUM CHLORIDE 100 ML IVPB ONE (09:52)
[2024-01-12] MEDS: KETOROLAC TROMETHAMINE 15 MG/ML VIAL IVPUSH PRN ×2 (12:01→18:05)
[2024-01-12] MEDS ORDERED: traMADol HCL 50 MG TABLET PO PRN (13:49)
[2024-01-13 07:56] LABS: HEMOGLOBIN 10.8 GM/dL (11.7-16.9); MCH 25.8 pg (25.7-33.7); MCHC 32.9 g/dl (32.0-35.9); MEAN CELL VOLUME 78.4 fl (80-96); MEAN PLT VOLUME 8.7 fl (7.5-11.1); PLATELET COUNT 150 10^3/uL (134-434); RBC 4.21 M/mm3 (4.00-5.60); RDW 15.7 % (11.9-15.9); WHITE BLOOD COUNT 10.7 K/mm3 (4.0-10.0)
[2024-01-13 08:28] LABS: POTASSIUM 3.5 mmol/L (3.5-5.1)
[2024-01-13 08:32] LABS: ALBUMIN 2.8 g/dl (3.4-5.0); CALCIUM 8.5 mg/dL (8.5-10.1)
[2024-01-13 08:33] LABS: BLOOD UREA NITROGEN 5.5 mg/dL (7-18)
[2024-01-13 08:36] LABS: CREATININE 0.8 mg/dL (0.55-1.3)
[2024-01-13 08:37] LABS: BILIRUBIN,TOTAL 2.3 mg/dL (0.2-1); TOT PROT 6.6 g/dl (6.4-8.2)
[2024-01-13 09:33] VITALS: BP 146/82; PULSE 82; TEMP 96.5
[2024-01-14] MEDS ORDERED: IRON SUCROSE INJECTION 200 MG in SODIUM CHLORIDE 100 ML IVPB ONE (10:00)
== END 2024-01-13 12:42 | disposition home or self-care (01) | DRG 439 ==
LOC: JER 08:25 → JERBED 13:08 → J6S 17:08
PROVIDERS: ADMIT Internal Medicine; ATTEND Internal Medicine
DX: K85.20 Alcohol induced acute pancreatitis without necrosis or infection (principal); Z68.42 Body mass index [BMI] 45.0-49.9, adult; I10 Essential (primary) hypertension; E11.9 Type 2 diabetes mellitus without complications; E66.01 Morbid (severe) obesity due to excess calories; K86.0 Alcohol-induced chronic pancreatitis; K76.0 Fatty (change of) liver, not elsewhere classified; F10.20 Alcohol dependence, uncomplicated; R16.0 Hepatomegaly, not elsewhere classified; E78.5 Hyperlipidemia, unspecified; M10.9 Gout, unspecified
CPT/HCPCS: 36415; 71045-TC-FY; 74177-TC; 80053; 80061; 82105; 82378; 82728; 82962; 83036; 83516; 83540; 83550; 83605; 83690; 83735; 84100; 84484; 84550; 85025; 85027; 85610; 85730; 86038; 86140; 86301; 93005; 93010; 99285-25; J0131; J1756; Q9967

== ENCOUNTER 2025-02-22 17:07 | Inpatient (IN) | payer OTHER, BC ==
[2025-02-22 18:26] LABS: RDW 14.6 % (12.2-16.4)
[2025-02-22] MEDS: LACTATED RINGERS SOLUTION 1000 ML INFUS.BAG IV ONE (18:26)
[2025-02-22 18:28] LABS: HEMATOCRIT 38.3 % (40.1-51.0); HEMOGLOBIN 12.2 g/dL (13.7-17.5); MCHC 31.9 g/dl (32.3-36.5); MEAN CELL VOLUME 74.1 fl (79.0-92.2); PLATELET COUNT 134 x10^3/uL (163-337)
[2025-02-22 18:41] LABS: VENOUS BASE EXCESS -0.8 mmol/L (-2-2); VENOUS O2 SATURATION 56.7 % (70-80); VENOUS PCO2 35.4 mmHg (38-52); VENOUS PH 7.431 (7.310-7.410)
[2025-02-22 18:52] LABS: CHLORIDE 98 mmol/L (98-107); POTASSIUM 4.2 mmol/L (3.5-5.1); SODIUM 132 mmol/L (136-145)
[2025-02-22 18:55] LABS: CALCIUM 9.3 mg/dL (8.5-10.1)
[2025-02-22 18:56] LABS: ALBUMIN 3.5 g/dl (3.4-5.0); ANION GAP 13 mmol/L (4-13); BLOOD UREA NITROGEN 12.4 mg/dL (7-18); CO2 21 mmol/L (21-32); MAGNESIUM 1.8 mg/dL (1.8-2.4)
[2025-02-22 18:59] LABS: CREATININE 1.4 mg/dL (0.55-1.3); PHOSPHOROUS 2.4 mg/dL (2.5-4.9); SGOT/AST 23 U/L (15-37); SGPT/ALT 28 U/L (13-61)
[2025-02-22 19:01] LABS: BILIRUBIN,TOTAL 0.7 mg/dL (0.2-1); TOT PROT 7.2 g/dl (6.4-8.2)
[2025-02-22 19:02] LABS: ALK PHOS 140 U/L (45-117)
[2025-02-22 19:13] LABS: GLUCOSE,RANDOM 503 mg/dL (74-106)
[2025-02-22 19:19] LABS: PH,URINE 5.5 (5.0-8.0); URINE APPEARANCE CLEAR; URINE BILIRUBIN NEGATIVE (NEGATIVE); URINE COLOR YELLOW; URINE GLUCOSE (UA) 3+ (NEGATIVE); URINE KETONE 1+ (NEGATIVE); URINE LEUK ESTERASE NEGATIVE (NEGATIVE); URINE NITRITE NEGATIVE (NEGATIVE); URINE PROTEIN NEGATIVE (NEGATIVE); URINE UROBILINOGEN 0.2 mg/dL (0.2-1.0)
[2025-02-22] MEDS: INSULIN (NOVOLOG) ASPART 100 UNITS/ML 10ML VIAL SQ ONE (21:01)
[2025-02-22] MEDS ORDERED: DOCUSATE SODIUM 100 MG CAPSULE (FP) PO PRN (22:55)
[2025-02-23] MEDS: LACTATED RINGERS SOLUTION 1,000 ML IV SCH (00:54)
[2025-02-23 02:45] LABS: POTASSIUM 3.6 mmol/L (3.5-5.1)
[2025-02-23 02:46] LABS: MAGNESIUM 1.9 mg/dL (1.8-2.4)
[2025-02-23] MEDS: KETOROLAC TROMETHAMINE 15 MG/ML VIAL IVPUSH ONE (03:57)
[2025-02-23 04:14] VITALS: RESP 18; BMI 44.8
[2025-02-23] MEDS: INSULIN ASPART SLIDING SCALE (NOVOLOG) 1 VIAL SQ SCH (05:34)
[2025-02-23 09:11] LABS: ABSOLUTE IMMATURE GRANULOCYTES 0.04 x10^3/uL (0.0-0.031); HEMOGLOBIN 11.3 g/dL (13.7-17.5); RDW 14.8 % (12.2-16.4)
[2025-02-23 09:13] LABS: BASOPHILS # 0.06 x10^3/uL (0.01-0.08); EOSINOPHIL % 3.1 % (0.8-7.0); EOSINOPHILS # 0.24 x10^3/uL (0.04-0.54); HEMATOCRIT 36.3 % (40.1-51.0); MCHC 31.1 g/dl (32.3-36.5); MEAN CELL VOLUME 75.3 fl (79.0-92.2); MONOCYTE # 0.97 x10^3/uL (0.30-0.82); MONOCYTE % 12.5 % (5.3-12.2); PLATELET COUNT 130 x10^3/uL (163-337)
[2025-02-23 09:19] LABS: INR 1.18 (0.83-1.09)
[2025-02-23 09:21] LABS: ACTIVATED PTT 31.2 SECONDS (25.2-36.5)
[2025-02-23 09:44] LABS: POTASSIUM 3.8 mmol/L (3.5-5.1)
[2025-02-23 10:04] LABS: CALCIUM 9.1 mg/dL (8.5-10.1); MAGNESIUM 1.7 mg/dL (1.8-2.4)
[2025-02-23 10:07] LABS: CREATININE 1.2 mg/dL (0.55-1.3); PHOSPHOROUS 3.7 mg/dL (2.5-4.9)
[2025-02-23] MEDS: INSULIN GLARGINE (LANTUS) 100 UNITS/ML UNITS SQ SCH (10:48)
[2025-02-23] MEDS: PANTOPRAZOLE 20 MG TABLET PO SCH (10:48)
[2025-02-23] MEDS: ENALAPRIL MALEATE 5 MG TABLET PO SCH (10:48)
[2025-02-23] MEDS: ACETAMINOPHEN 325 MG TABLET (FP) PO PRN (15:50)
[2025-02-23] MEDS: KETOROLAC TROMETHAMINE 15 MG/ML VIAL IM ONE (22:18)
[2025-02-23] MEDS: ALLOPURINOL 100 MG TABLET (FP) PO SCH (22:21)
[2025-02-23] MEDS ORDERED: INSULIN GLARGINE (LANTUS) 100 UNITS/ML UNITS SQ SCH (23:30)
[2025-02-24] MEDS: metFORMIN HCL 500 MG TABLET (FP) PO SCH (06:41)
[2025-02-24] MEDS: EMPAGLIFLOZIN (JARDIANCE) 25 MG TABLET PO SCH (06:42)
[2025-02-24] MEDS: INSULIN GLARGINE (LANTUS) 100 UNITS/ML UNITS SQ SCH (07:51)
[2025-02-24 08:31] LABS: ABSOLUTE IMMATURE GRANULOCYTES 0.04 x10^3/uL (0.0-0.031); BASOPHILS # 0.03 x10^3/uL (0.01-0.08); EOSINOPHIL % 3.1 % (0.8-7.0); EOSINOPHILS # 0.22 x10^3/uL (0.04-0.54); HEMATOCRIT 35.3 % (40.1-51.0); HEMOGLOBIN 11.1 g/dL (13.7-17.5); MCHC 31.4 g/dl (32.3-36.5); MEAN CELL VOLUME 75.3 fl (79.0-92.2); MONOCYTE # 0.89 x10^3/uL (0.30-0.82); MONOCYTE % 12.6 % (5.3-12.2); PLATELET COUNT 126 x10^3/uL (163-337); RDW 14.7 % (12.2-16.4)
[2025-02-24 09:08] LABS: POTASSIUM 3.5 mmol/L (3.5-5.1)
[2025-02-24 09:09] LABS: CALCIUM 8.7 mg/dL (8.5-10.1)
[2025-02-24 09:10] LABS: BLOOD UREA NITROGEN 14.2 mg/dL (7-18)
[2025-02-24 09:13] LABS: CREATININE 1.1 mg/dL (0.55-1.3)
[2025-02-24 09:15] LABS: BILIRUBIN,TOTAL 0.5 mg/dL (0.2-1); TOT PROT 6.2 g/dl (6.4-8.2)
[2025-02-24 11:26] VITALS: TEMP 97.7
[2025-02-24 13:30] VITALS: BP 100/69; PULSE 90
== END 2025-02-24 13:52 | disposition home or self-care (01) | DRG 638 ==
LOC: JER 17:07 → JERBED 22:10 → J7W 02-23 02:55 → OBSVTOIN 02-23 07:45
PROVIDERS: ADMIT Family Medicine; ATTEND Family Medicine
DX: E11.65 Type 2 diabetes mellitus with hyperglycemia (principal); Z68.42 Body mass index [BMI] 45.0-49.9, adult; K86.1 Other chronic pancreatitis; E66.01 Morbid (severe) obesity due to excess calories; I10 Essential (primary) hypertension; E11.40 Type 2 diabetes mellitus with diabetic neuropathy, unspecified; F10.10 Alcohol abuse, uncomplicated; E78.5 Hyperlipidemia, unspecified; G47.33 Obstructive sleep apnea (adult) (pediatric); K57.90 Diverticulosis of intestine, part unspecified, without perforation or abscess without bleeding; K21.9 Gastro-esophageal reflux disease without esophagitis
CPT/HCPCS: 36415; 71045-TC-FY; 80048; 80053; 80061; 81003; 82010; 82728; 82803; 82962; 83036; 83540; 83550; 83690; 83735; 83935; 84100; 84132; 84443; 85025; 85027; 85610; 85730; 93005; 93010; 93306-TC; 99285-25; G0378